=== PATIENT | female | born 1960 | race Caucasian/White ===

== ENCOUNTER 2018-08-24 07:15 | Day surgery (SDC) | payer OTHER, SELFPAY ==
[2017-10-02 08:07] VITALS: BMI 28.9
[2018-08-24] VITALS (7 sets, daily range): BP systolic 102–140; BP diastolic 63–91; PULSE 70–91; RESP 16–18; TEMP 36.3–36.8; O2SAT 94–100; BMI 28.4
--- NOTE | 2018-08-24 08:30 | COLBX_PTH ---
PATIENT: GRETA CRESPO LOC: EN U#:[id number] AGE/SX: 58/F ROOM: RE08/24/[address]: Dr. Miguel Corral MD : 1960 BED: DIS: 08/24/2018 SPEC #: [id number] RECD: 08/24/18 11:09 STATUS: ERNESTINA [place]NE #: [id number] ABIGAIL: 08/24/18 08:[address]: Miguel Corral DEPT: SURGICAL PATHOLOGY RECD BY: Kiran Miner ENTERED: 08/24/18 12:23 SP TYPE: COLON BX OTHR DR: Dr. Joao Herron MD Tissues: Sigmoid colon biopsy Procedures: Surgery Specimen Level IV HEADER OPERATION: Colonoscopy - open access (MAC) PRE-OP DIAGNOSIS: History colon polyps TISSUE SUBMITTED: Sigmoid polyp biopsy MICROSCOPIC DIAGNOSIS Sigmoid polyp, biopsy: Fragments of colonic mucosa with focal hyperplastic changes. SJ:yocasta 08/25/18 MICROSCOPIC DESCRIPTION Slides are reviewed. GROSS DESCRIPTION Received in fixative is one container labeled with the patient's name and designated sigmoid polyp biopsy. The specimen consists of two irregular fragments of light jameson soft tissue that in aggregate measure 0.3 x 0.3 x 0.1 cm. The specimen is totally submitted in one cassette. / SJ:rg 08/24/18 TC:5 CPT: 12977
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
--- NOTE | 2018-08-24 09:07 | OP.ENDO_ITS ---
08/24/2018 Joao Herron MD [address] [place] [address] Re : Colonoscopy procedure for Yesika Serna Dear Dr. Herron This procedure was performed on Friday, August 24, 2018. My impressions and recommendations are as follows: Impressions : - The entire examined colon is normal. - One 3 mm polyp in the sigmoid colon, removed with a jumbo cold forceps. Resected and retrieved. - Diverticulosis in the sigmoid colon. No specimens collected. - Non-bleeding internal hemorrhoids. - The examination was otherwise normal. Recommendations : - Discharge patient to home. - Resume previous diet. - Continue present medications. - Await pathology results. - Repeat colonoscopy in 3 years for surveillance. - Return to my office in 1 week. My findings are described in the full procedure note, which is enclosed. If I can be of further assistance, please feel free to contact me at Doctor phone number(s): , Fax: [phone], Work: . Sincerely, MD Miguel Prakash MD 08/24/2018 9:07:16 AM This report has been signed electronically.
== END 2018-08-24 10:00 | disposition home or self-care (01) ==
LOC: EN 07:16 → AC 08:43
PROVIDERS: Family Provider Family Medicine; PCP Family Medicine; Referring Provider Surgery; Visit Provider Surgery
PROC: 0DJD8ZZ Inspection of Lower Intestinal Tract, Via Natural or Artificial Opening Endoscopic (ICD-10-PCS; CPT 45378; principal; 2018-08-24 08:25)
DX: Z12.11 Encounter for screening for malignant neoplasm of colon (principal); K63.5 Polyp of colon; K57.30 Diverticulosis of large intestine without perforation or abscess without bleeding; L23.7 Allergic contact dermatitis due to plants, except food; E07.9 Disorder of thyroid, unspecified; F32.9 Major depressive disorder, single episode, unspecified; F41.9 Anxiety disorder, unspecified; F17.200 Nicotine dependence, unspecified, uncomplicated; Z79.899 Other long term (current) drug therapy; Z78.0 Asymptomatic menopausal state; Z86.010 Personal history of colon polyps; Z85.828 Personal history of other malignant neoplasm of skin
CPT/HCPCS: 45380; 88305; J7120; J1610

== ENCOUNTER → 2018-09-09 06:38 | Outpatient (CLI) | payer OTHER, SELFPAY ==
[2017-10-02 08:07] VITALS: BMI 28.9
[2018-08-24 07:39] VITALS: BMI 28.4
--- NOTE | 2018-09-09 06:42 | RAD_ITS ---
HISTORY: RT hip PAIN W/ DDD EXAMINATION/TECHNIQUE: XR AP pelvis and right hip 3 views COMPARISON: None FINDINGS: Degenerative arthritis with moderate narrowing of the right femoral acetabular joint. The left hip joint and SI joints appear preserved. Tubal ligation clips within the pelvis. No suspicious bony lesion. RAD/HIP, UNI W/ Pelvis 2-3 Views IMPRESSION: 1. Moderate osteoarthritis, right femoral acetabular joint. 2. Otherwise negative exam. Normal left hip. No acute disease. at 0813 Reported and signed by: Arcenio Peguero MD Electronically Signed: Arcenio Peguero, at 8:12 EDT Tel , Service support ,
== END ==
PROVIDERS: Family Provider Family Medicine; PCP Family Medicine; Referring Provider Family Medicine; Visit Provider Family Medicine
DX: M25.551 Pain in right hip (principal)
CPT/HCPCS: 73502

== ENCOUNTER → 2018-10-09 10:39 | Outpatient (CLI) | payer OTHER, SELFPAY ==
[2018-08-24 07:39] VITALS: BMI 28.4
[2018-10-09 12:30] LABS: Absolute Lymphocyte Count 2.86 X10^3/uL (0.83-4.51); Absolute Neutrophil Count 9.7 X10^3/uL (2.0-7.7); Basophil# 0.21 X10^3/uL; Basophil% 1.5 % (0-1); Eosinophil# 0.33 X10^3/uL; Eosinophils% 2.3 % (0-5); Hematocrit 42.8 % (37-47); Hemoglobin 14.3 g/dL (12.0-15.0); Lymphocyte # 2.86 X10^3/ul (4.0); Lymphocyte % 20.2 % (19-41); Mean Corp Hgb Conc 33.4 g/dL (32-36); Mean Corpuscular Hgb 29.6 pg (27.0-32.0); Mean Corpuscular Volume 88.6 fL (81-99); Mean Platelet Vol. 10.5 fl (6.2-12.0); Monocyte# 0.96 X10^3/uL; Monocyte% 6.8 % (0-10); NRBC Flagged by Analyzer 0 % (0-5); Neutrophil # 9.71 X10^3/uL (2.7-7.7); Neutrophil % 68.7 % (47-70); Platelet Count 377 K/mm3 (150-450); RBC Distribution Width CV 13.9 % (11.6-14.6); Red Blood Count 4.83 M/mm3 (4.2-5.4); White Blood Count 14.1 K/mm3 (4.4-11.0)
[2018-10-09 12:58] LABS: Anion Gap 7 (5-15); BUN 14 mg/dL (7-18); BUN/Creat Ratio 24.1 RATIO (10-20); Chloride 104 mmol/L (98-107); Creatinine, Serum 0.58 mg/dL (0.55-1.02); EST Glomerular Filtration Rate 113 mL/min (>60); Est Glom Filt Rate - Afr Amer 137 mL/min (>60); Glucose 81 mg/dL (74-106); Potassium 3.8 mmol/L (3.5-5.1); Sodium Level 138 mmol/L (136-145)
== END ==
PROVIDERS: Family Provider Family Medicine; PCP Family Medicine; Referring Provider Family Medicine; Visit Provider Family Medicine
DX: Z01.818 Encounter for other preprocedural examination (principal)
CPT/HCPCS: 36415; 80048; 85025

== ENCOUNTER 2018-11-04 06:47 | Inpatient (IN) | payer OTHER, SELFPAY ==
[2018-08-24 07:39] VITALS: BMI 28.4
[2018-10-19 15:08] VITALS: BP 138/75; PULSE 73; RESP 17; TEMP 37.5; O2SAT 98; BMI 29.7
[2018-10-19 16:41] LABS: Thyroid Stim Hormone (TSH) 3.32 uIU/mL (0.358-3.74)
--- NOTE | 2018-10-20 15:33 | HP.PCM_ITS ---
History and Physical Patient Name: Yesika Bey: 1960 From: VANDANA MONROY PA-C DATE OF SURGERY: 11/04/2018 SCHEDULED PROCEDURE: right total hip arthroplasty HISTORY OF PRESENT ILLNESS: Preoperative history and physical exam was performed on October 19, 2018. This is a 58-year-old female who has been having ongoing pain in the right hip for a pproximately 8 months. Pain can reach as high as an 8/10 with activity. Patient states her pain is sharp and sore. She has increased pain going up and down stairs, sitting for extended periods of time, walking. She has difficult time getting in and out of a car. She does have start up pain. Pain is located in the right groin. Patient states the pain does occasionally wake her at night. Patient states she has had difficult time with activities of daily living including dressing, housework, shopping, and leisure activities such as horseback riding and working. Patient has fallen and tripped/stumbled due to the hip pain. She feels unsafe walking and going up and down stairs. Patient has tried rest and heat with minimal relief. She has been through patient care secretary with minimal relief. Patient has tried ice and elevation with no relief as well as home exercises with no relief in symptoms. She has been on oral medications consisting of naproxen and Advil with no relief. She has used hydrocodone with minimal relief. Patient denies previous surgeries on the right hip. Patient denies any recent chest pain, shortness of breath, fevers chills, recent infections. After failing conservative measures and discussing all treatment options with Dr. Devon Guerrier the patient does wish to proceed with a right total hip arthroplasty. We have obtain surgical clearance from patient's primary care physician Dr. Herron. REVIEW OF SYSTEMS: ROS: Const: Reports weight change, but denies anorexia, change in appetite, fever, difficulty sleeping. CV: Denies chest pain, heart murmur, irregular heartbeat and peripheral vascular disease. Resp: Denies asthma, cough, pneumonia, sleep apnea, shortness of breath, tuberculosis and wheezing. GI: Denies constipation, diarrhea, heartburn, nausea, rectal itching, bloody stools and vomiting. : Denies incontinence. Musculo: Reports pain and trouble walking, but denies leg swelling and weakness. Skin: Reports tattoo, but denies Raynaud's and history of shingles. Neuro: Denies ambulatory dysfunction, dizziness, numbness/tingling and tremor. Psych: Reports depression and stress, but denies anxiety, insomnia and mental illness. Tam/Lymph: Denies anemia, bleeding/bruising tendency and past transfusion. Reviewed, no changes. PAST MEDICAL HISTORY: Advance Care Plan: No Advance Directives Effective Date: 10/01/2018 PMH: Medical Problems: Depression, Hypercholesterolemia, Thyroid Disease Accidents: cracked ribs - 1991 horse accident Surgical Hx: Tonsillectomy - 1965 [facility] Tubal Ligation - 2004 [facility] Gallbladder, LT Shoulder Arthroscopy Anesthesia Complications: None Assistive Devices: Contacts, Dentures - PARTICAL Reviewed and updated. 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 Personal Habits: Cigarette Use: Light tobacco smoker (10 or fewer cigarettes/day).Smokeless Tobacco: Never Used Smokeless Tobacco.E-Cigarette Use: Never used.Alcohol: Weekly use.Drug Use: Denies Use.Enjoy Exercising: Exercises 1-3 x/month. Reviewed, no changes. VITALS: Ht: 65 Wt: 185lb Wt k.916 BMI: 30.8 BP: 136/86 Pulse: 66 Resp: 16 T: 97.9 T: 36.6C ALLERGIES: Morphine MEDICATIONS: Trazodone HCL 50 mg 1 po qhs, Levothroid 50 mcg 1 tab PO daily, Acyclovir 400 mg 1po qday, Duloxetine HCL 60 mg 1po qday, Crestor 1 tab PO daily PRE-OP EXAM: General appearance:NORMAL Other: Eyes: Conjunctivae and lids: NORMAL Pupils: ERR Ears, Nose, Mouth, and Throat: NORMAL Other: Inspection of lips, teeth and gums: NORMAL Other: Neck: Examination of neck: no masses noted. Respiratory: Assessment of respiratory effort: NORMAL Other: Auscultation of lungs: clear to auscultation no wheezes, rhonchi or rales. Cardiovascular: Auscultation of heart: regular rate and rhythm, no murmurs, gallops or rubs. Gastrointestinal: Exam of abdomen: soft, nontender, nondistended bowel sounds present. PHYSICAL EXAMINATION: Patient does walk with an antalgic gait. Patient has tenderness to palpation of the right lateral hip at the greater trochanter. Range of motion right hip full extension to 80 flexion with increased pain. Internal rotation to neutral and external rotation 20. 4/5 hip flexion secondary to pain. Sensation intact to light touch. Neurovascularly intact. IMAGING STUDIES: X-rays were obtained at [facility] on October 19, 2018 including 2 views AP pelvis and AP right hip reveal severe osteoarthritis with joint space narrowing and osteophyte formation. There does appear to be shallow acetabulum consistent with dysplastic appearance of the hip and oblong shape to the femoral head. IMPRESSION: 1. Severe right hip osteoarthritis 2. Depression 3. Hypercholesterolemia 4. Thyroid disease PLAN: Dr. Devon Guerrier did discuss and review with the patient all treatment options including surgical versus nonsurgical options. Patient does wish to proceed with the above-stated procedure. Potential risks, benefits, and complications of the procedure were discussed in detail including but not limited to , infection, nerve and blood vessel damage, persistent pain, numbness, tingling, paresthesias, blood clot, pulmonary embolism, and requirement for possible further surgery. The patient expressed full understanding and has no further questions for the doctor. Patient does agree to proceed with the above-stated procedure and has signed the surgery consent form. This dictation was created using voice recognition software. Phonetic and/or grammatical errors may exist. ___ I have re-examined the patient. There are no clinical changes since date of exam. ___ See progress notes for changes. ___ Dictated on admission Date: Time: Signature:
[2018-11-04] VITALS (11 sets, daily range): BP systolic 99–142; BP diastolic 58–92; PULSE 56–76; RESP 16–18; TEMP 36.2–37.1; O2SAT 97–100; BMI 29.7
--- NOTE | 2018-11-04 06:58 | RAD_ITS ---
STUDY: X-RAY - PELVIS AND RIGHT HIP REASON FOR EXAM: Postop right hip arthroplasty. TECHNIQUE: 2 views of the pelvis and hip. COMPARISON: Radiographs 09/09/2018 and intraoperative images 11/04/2018. FINDINGS: There are surgical clips in the pelvis. There is postoperative gas in the soft tissues. Normal visualized bilateral iliac wings, sacroiliac joints and visualized sacrum. Normal bilateral superior and inferior pubic rami. Normal pubic symphysis. Normal bilateral ischial tuberosities. There is a right hip arthroplasty without evidence of complication. RAD/Hip Min 2 Views (Portable) IMPRESSION: Uncomplicated right hip arthroplasty. Electronically Signed: Garland Degroot MD at 14:21 EDT Tel , Service support ,
[2018-11-04 07:21] LABS: Bedside Glucose 85 mg/dL (70-110)
[2018-11-04] MEDS: Magnesium Sulfate 4gm/100mL 4 GM/100 ML IV.SOLN. IV (07:36)
[2018-11-04] MEDS: Gabapentin 600 MG Tablet PO (07:41)
[2018-11-04] MEDS: Celecoxib 200 MG Capsule 400 MG PO (07:41)
[2018-11-04] MEDS: Acetaminophen 500 MG Tablet 1000 MG PO ×3 (07:43→21:02)
[2018-11-04] MEDS: Scopolamine 1mg/72hr Patch 1 PATCH TRANSDERM. (07:44)
[2018-11-04] MEDS: Cefazolin 2 GM in 0.9% Normal Saline 100 ML IV (08:44)
--- NOTE | 2018-11-04 09:39 | RAD_ITS ---
STUDY: Intraoperative fluoroscopy of the right hip REASON FOR EXAM: Female, 58 years old. Right hip replacement TECHNIQUE: Single intraoperative fluoroscopy view of the pelvis and hip. COMPARISON: 09/09/2018 FINDINGS: This trial prosthesis in place for intraoperative assessment of the right hip prosthesis, which demonstrates anatomical positioning. RAD/Hip 1 view with Pelvis IMPRESSION: Anatomical intraoperative positioning of the right hip prosthesis. Electronically Signed: Francesco Singh MD at 14:08 EDT Tel [phone], Service support ,
--- NOTE | 2018-11-04 10:25 | OP.PCM_ITS ---
Report of Operation Date of Procedure: 11/04/18 Pre-Operative Diagnosis: Right hip dysplasia with secondary osteoarthritis Post-Operative Diagnosis: Right hip dysplasia with secondary osteoarthritis Surgery/Procedure Performed:: Right direct anterior minimally invasive total hip replacement Description of Surgical Findings:: Stable hip. building economist: Kahlil Munguia Type of Anesthesia:: Spinal Anesthesiologist: Mitchel Carranza Special Medications: 2 g Ancef, 1 g TXA at incision, 1 g TXA closure, 10 mg Decadron, joint cocktail (5 mg Duramorph, 30 mL of 0.5% Ropivicaine, 1000 units of epinephrine, 30 mg of Toradol) Specimen's removed: Bony cuts Estimated Blood Loss (mL): 250 Fluids Replaced: 900 mL crystalloid Description of Procedure: Components used: 1. Accolade 2 Kameron femoral stem size 2 127? 2. Kameron trident 2 acetabular shell size 52 mm 3. Kameron MDM liner E, with corresponding outer polyethylene head 42E 4. Cordova Biolox delta 26 mm, -4 mm femoral head Brief history operative indications: 58 yo f who failed conservative measures for their hip osteoarthritis secondary to dysplasia. X-rays were consistent with osteoarthritis including joint space narrowing, osteophyte formation and subchondral cysts. Total hip replacement was discussed with the patient with risks and benefits including but not limited to blood loss, DVTs, PEs, neurovascular damage, dislocation, general risks of anesthesia including loss of life. Patient demonstrated an understanding medical clearance is obtained the patient was consented for surgery. Procedure: On the date of procedure the patient's r hip was marked in the preoperative area . Patient was then taken back to the operating room where anesthesia assumed control of the C-spine and airway and administered anesthetic. Patient was transferred to the operating table and placed in the supine position. The hips were placed at the break of the bed and a sacral bump was placed. The r lower extremity was then prepped out in a sterile fashion using chlorhexidine while the surgeon scrubbed. The PA was vital in the positioning of the patient. Upon reentering the room the r lower extremity was draped in the standard orthopedic fashion and the incision was marked. A timeout was called and everyone agreed upon the side, the site, the procedure be performed, antibody given, and patient's identity. At this time incision was made through skin, subcutaneous tissue, and fat down to fascia. The fascia was then incised and the TFL was retracted laterally. A retractor was placed on the lateral border of the femoral neck. Attention was directed to the inferior portion of the approach and all crossing vessels were identified and appropriately coagulated. A retractor was then placed on the medial portion of the femoral neck. The anterior capsule was then cleared of all soft tissue and then H shaped capsulotomy was made. The retractors were then placed inside the capsule. The femoral neck was identified and a cleanup cut was made. At this time a power corkscrew was used to remove the femoral head. Attention was then turned toward the acetabulum where the soft tissues were appropriately retracted and the acetabulum was sequentially reamed to 52 mm. A 52 mm cup was then selected and impacted into place. Acetabular liner was impacted into place and locking mechanism was verified. The position of the acetabular cup was then verified under live fluoroscopy. Attention was then turned to the femur. Soft tissue releases on the medial and lateral femoral neck were appropriately done, the leg was externally rotated and lateralized. A Ritter retractor was placed medially and proximally to the greater trochanter this allowed appropriate visualization and exposure of the femoral canal. Rongeour was then used to remove excess lateral bone. A canal finder and entry broach were used to open the proximal canal. Once we verified we were down the femoral canal we subsequently broached up to a size 2 femur. The appropriate neck was placed in the previously selected head was trialed with a -5 mm neck. Traction was pulled and the hip was reduced with internal rotation. Once it was appropriately reduced and stability was checked. There was minimal shuck, equal leg lengths and what was felt to be appropriate stability with hyperextension and external rotation as well as with 90? flexion and internal rotation. Fluoroscopy was then also used to verify the position of the components and leg lengths using the contralateral side for comparison. The trial components were then dislocated the proximal femur was again exposed and the components were removed from the wound. The final components were verified and opened. The wound was copiously irrigated out with normal saline. The acetabulum was checked for any residual debris. The final components were placed and impacted. Traction and internal rotation were again used to reduce the hip. After adequate reduction the hip stability checks were not satisfactory. At this time we elected to dislocate the hip and go to an MDM liner. The polyethylene liner was removed. The previous ceramic head was removed. The wound was copiously irrigated out. The MDM liner which is appropriate was placed. We then trialed a -4 for the MDM which showed appropriate stability and adequate leg length equality. Trial was removed after dislocating the hip. Trunnion was cleaned, components were assembled on the back table and impacted into place. The hip was again reduced. This time we had adequate stability with the hip and external rotation and extension. The final components were once again checked with live fluoroscopy and were found to be satisfactory. The wound was then copiously irrigated with normal saline once more, and hemostasis was obtained. Closure was then done using #1 Vicryl runner to close the fascia. A 2-0 vicryl interuppted sutures were used to close the subcutaneous skin. A 3-0 Monocryl and Steri-Strips were used for final skin closure. A Silverlon dressing was placed. Patient was awakened by anesthesia and transferred to the [facility]. Patient was then transferred to the PACU for recovery. Postoperative plan: Patient will get 24 hours postop antibiotics. Patient will get in-house physical therapy and will be weight-bear as tolerated. Patient will follow up in office in 2 weeks for a wound check and x-rays. Grafts/Implants Used: Cordova - Complications No intraoperative complications - Admit VTE Documentation VTE Present on Admission: No VTE Mechan Device Prophylaxis: SCD's, Thigh High LIOR Hose VTE Pharm Prophylaxis ordered?: Yes
[2018-11-04] MEDS: Lactated Ringers 1,000 ML 125 ML IV (11:24)
[2018-11-04] MEDS: oxyCODONE 5 MG Tablet PO ×3 (12:33→21:04)
[2018-11-04] MEDS: Acyclovir 200 MG Capsule 400 MG PO (14:20)
[2018-11-04] MEDS: DULoxetine Hcl 60 MG Capsule PO (14:20)
[2018-11-04] MEDS: Famotidine 20 MG Tablet PO (14:20)
[2018-11-04] MEDS: Cefazolin 1 GM/50 ML BAG IV (16:07)
[2018-11-04] MEDS: Aspirin 81 MG TAB.CHEW PO (16:08)
[2018-11-04] MEDS: Ensure Surgery 237 ML LIQUID PO (16:19)
[2018-11-04] MEDS: Atorvastatin Calcium 10 MG Tablet PO (21:03)
[2018-11-04] MEDS: traZODone 50 MG Tablet PO (21:04)
[2018-11-04] MEDS: Senna/Docusate Sodium 1 Tablet 2 TABLET PO (21:04)
--- NOTE | 2018-11-04 21:16 | NURSING ---
pt requesting scope patch be removed. c/o dry mouth and does not feel she needs it. patch removed and disposed of.
[2018-11-05] MEDS: Cefazolin 1 GM/50 ML BAG IV (00:29)
[2018-11-05] MEDS: 0.9% NaCl Peripheral Flush Adult/Peds IV (00:41)
[2018-11-05] MEDS: Ketorolac 15 MG/ML Vial IV (00:41)
[2018-11-05 00:47] VITALS: BP 102/61; PULSE 64; RESP 18; TEMP 36.5; O2SAT 95
[2018-11-05] MEDS: oxyCODONE 5 MG Tablet PO ×2 (03:59→07:37)
[2018-11-05 04:05] VITALS: BP 115/63; PULSE 65; RESP 16; TEMP 36.6; O2SAT 96
[2018-11-05 05:50] LABS: Hemoglobin 11.9 g/dL (12.0-15.0); Mean Corp Hgb Conc 33.1 g/dL (32-36); Mean Corpuscular Volume 90.7 fL (81-99); Mean Platelet Vol. 10.1 fl (6.2-12.0); Platelet Count 296 K/mm3 (150-450); RBC Distribution Width CV 13.6 % (11.6-14.6); Red Blood Count 3.97 M/mm3 (4.2-5.4); White Blood Count 13.9 K/mm3 (4.4-11.0)
[2018-11-05 06:10] LABS: Anion Gap 7 (5-15); BUN 12 mg/dL (7-18); BUN/Creat Ratio 22.5 RATIO (10-20); Calcium,Total 8.2 mg/dL (8.5-10.1); Chloride 107 mmol/L (98-107); Creatinine, Serum 0.53 mg/dL (0.55-1.02); EST Glomerular Filtration Rate 125 mL/min (>60); Est Glom Filt Rate - Afr Amer 151 mL/min (>60); Estimated Creatinine Clearance 106.99 ml/min; Glucose 96 mg/dL (74-106); Potassium 4.3 mmol/L (3.5-5.1); Sodium Level 140 mmol/L (136-145)
[2018-11-05] MEDS: Meloxicam 7.5 MG Tablet PO (06:43)
[2018-11-05] MEDS: Levothyroxine 50 MCG Tablet PO (06:43)
[2018-11-05] MEDS: Acetaminophen 500 MG Tablet 1000 MG PO (06:43)
[2018-11-05] MEDS: Ensure Surgery 237 ML LIQUID PO (07:42)
[2018-11-05] MEDS: Senna/Docusate Sodium 1 Tablet 2 TABLET PO (07:42)
[2018-11-05] MEDS: Aspirin 81 MG TAB.CHEW PO (07:42)
[2018-11-05] MEDS: DULoxetine Hcl 60 MG Capsule PO (07:42)
[2018-11-05] MEDS: Famotidine 20 MG Tablet PO (07:43)
[2018-11-05] MEDS: Acyclovir 200 MG Capsule 400 MG PO (07:43)
[2018-11-05 07:47] VITALS: BP 103/64; PULSE 72; RESP 18; TEMP 36.8; O2SAT 98
--- NOTE | 2018-11-05 08:26 | PN.ORTHO_ITS ---
Subjective: The patient was sitting in bedside chair upon examination. Patient denies any chest pain, shortness of breath, dizziness, lightheadedness, nausea or vomiting, or calf pain. Pain is controlled on medications. No adverse overnight events. Patient is overall doing very well and is wanting to go home this morning. She does complain of soreness in the right anterior thigh. Objective: Vital signs stable and afebrile. Patient is able to plantarflex and dorsiflex actively. Sensation is intact to light touch to saphenous, sural, superficial and deep peroneal, and tibial distribution. Dressing is clean dry and intact. Swelling to right thigh, thigh is soft and supple Negative Homans bilaterally, negative signs and symptoms of DVT. - Physical Exam General: Alert, Oriented x3, Cooperative, No apparent distress Vital Signs Temp Pulse Resp BP Pulse Ox 98.3 F 72 18 103/64 98 11/05/18 07:47 11/05/18 07:47 11/05/18 07:47 11/05/18 07:47 11/05/18 07:47 Oxygen Flow Rate (L/min) 6 Oxygen Delivery Method Room Air Weight: 83.4 kg Body Mass Index (BMI) 29.7 Intake and Output for Last 24 Hours 11/03/18 11/04/18 11/05/18 23:59 23:59 23:59 Intake Total 2856.67 / 3469.17 1142.5 / 1142.5 Output Total 801 / 801 Balance 2856.67 / 2968.17 341.5 / 341.5 Laboratory Tests Past 24 Hrs 11/05/18 11/05/18 04:55 04:55 WBC 13.9 H RBC 3.97 L Hgb 11.9 L Hct 36.0 L MCV 90.7 MCH 30.0 MCHC 33.1 RDW Std Deviation 46.0 H RDW Coeff of Ray 13.6 Plt Count 296 MPV 10.1 Sodium 140 Potassium 4.3 Chloride 107 Carbon Dioxide 26.0 Anion Gap 7 BUN 12 Creatinine 0.53 L Estim Creat Clear Calc 106.99 Est GFR (MDRD) Af Amer 151 Est GFR (MDRD) Non-Af 125 BUN/Creatinine Ratio 22.5 H Glucose 96 Calcium 8.2 L Medical Necessity - Tobacco Use Smoking Status: Current every day smoker Tobacco Use: Cigarettes Assessment/Plan All Active Problems (Last Reviewed 08/31/18 @ 14:47 by Lianne Conley) Contact dermatitis due to poison analilia (Acute) 1. S/P right direct anterior total hip arthroplasty POD #1 2. Continue Pain Medications: Tylenol and OxyIR 3. DVT Prophylaxis: Aspirin 81 mg twice daily with food for 4 weeks postoperatively 4. PT/OT: Weightbearing as tolerated 5. H & H: 11.9/36.0, asymptomatic 6. Reactive leukocytosis: Currently 13.9, afebrile. Patient did receive Decadron intraoperatively 7. Encouraged Incentive Spirometry 8. Disposition: Orthopedically stable, plan will be for discharge home after physical therapy this morning. Prescriptions will be E scribed to [facility]. Patient will follow-up per postop instructions.
--- NOTE | 2018-11-05 08:33 | PCM.DC.THR ---
Discharge Diet: No Restrictions Discharge Activity: May Not Drive - while taking narcotic pain medications. May shower in (days): 1 - Turn dressing away from water Ice area for (Minutes): 20 - Every 1-2 hours while awake Weight Bearing Status: Weight bearing as tolerated Elevate: Operative Extremity Additional Activity Instructions:: Wear elastic stockings for 2 weeks. DO NOT use alcohol with narcotic pain medication. DO NOT make important decisions while taking narcotic medication. If you have problems with taking your medication (rash, itching, nausea, etc.) call the office at once. Call your doctor if your incision/area has: Increased Pain/ Swelling, Increased Redness, Foul Smelling Discharge Call your doctor if you observe: Fever of 101 or Higher Remove Dressing in (days):: 4 - Okay to remove on November 09, 2018 Additional Instructions: Follow [facility] postop instructions Do not take aspirin 81 mg and meloxicam at the same time, please stagger medications Allergies/Adverse Reactions: Allergies insect venom Allergy (Verified 11/04/18 07:21) Swelling morphine Adverse Reaction (Verified 11/04/18 07:21) Other Medications to take at Discharge Acyclovir [Zovirax] 400 mg PO DAILY 07/10/16 Levothyroxine [Synthroid] 50 mcg PO DAILY 07/10/16 Duloxetine Hcl [Cymbalta] 60 mg PO DAILY 08/21/18 Rosuvastatin Calcium [Crestor] 5 mg PO DAILY 10/19/18 traZODone [Desyrel] 50 mg PO QHS 10/19/18 Acetaminophen [Tylenol] 1,000 mg PO Q8 #100 tab 11/05/18 Aspirin [Aspirin, Baby] 81 mg PO BIDCM 30 Days tab 11/05/18 Famotidine [Pepcid] 20 mg PO DAILY #30 tab 11/05/18 Meloxicam [Mobic] 7.5 mg PO BID #60 tab 11/05/18 Oxycodone [Oxyir] 5 - 10 mg PO Q4H PRN PRN 4 Days #45 tablet 11/05/18 Senna/Docusate Sodium [Senokot-S] 2 tab PO BID tab 11/05/18 The following prescriptions were given: Meloxicam [Mobic] 7.5 mg PO BID #60 tab Transmission Status: Pending to [facility] Oxycodone [Oxyir] 5 - 10 mg PO Q4H PRN PRN 4 Days #45 tablet PRN Reason: Mod-Severe Pain (-12/24) Transmission Status: Sent to [facility] Famotidine [Pepcid] 20 mg PO DAILY #30 tab Transmission Status: Pending to [facility] Acetaminophen [Tylenol] 1,000 mg PO Q8 #100 tab Transmission Status: Pending to [facility] Primary Care Physician: Joao Herron MD [Primary Care Provider] - Test Results: Test results from this visit will be discussed in further detail at your follow-up appointment, if applicable. Please Follow Up With: [facility] When: 11/09/18 @ 10:00 Please Follow Up With: Jose Gong PA-C When: 11/18/18 @ 8:30 am
== END 2018-11-05 09:47 | disposition home or self-care (01) | DRG 470 ==
LOC: ACINP 06:50 → MS3 06:54
PROVIDERS: Anesthesiology; Admitting Provider Specialist; Family Provider Family Medicine; PCP Family Medicine; Referring Provider Specialist; Visit Provider Specialist
PROC: 0SR90JA Replacement of Right Hip Joint with Synthetic Substitute, Uncemented, Open Approach (ICD-10-PCS; CPT 27284; principal; 2018-11-04 08:35)
DX: M16.7 Other unilateral secondary osteoarthritis of hip (principal); Q65.89 Other specified congenital deformities of hip; E07.9 Disorder of thyroid, unspecified; E78.00 Pure hypercholesterolemia, unspecified; F32.9 Major depressive disorder, single episode, unspecified
CPT/HCPCS: 36415; 73501; 73502; 76000; 80048; 82962; 84443; 85027; 87081; 97110; 97162; 97166; 97530; 99406; C1776; J7120; A4216; J2405

== ENCOUNTER 2018-12-18 14:00 | Outpatient (RCR) | payer OTHER, SELFPAY ==
[2018-08-24 07:39] VITALS: BMI 28.4
[2018-11-04 12:09] VITALS: BMI 29.7
--- NOTE | 2018-11-13 08:52 | HP.PTEVAL ---
Patient's Visit Information GRETA CRESPO is a 58 year old F referred to Physical Therapy by Devon Guerrier MD with a diagnosis of R KYLIE. Date of Evaluation: 11/09/18 Physical Therapist: Kevin Gardner DPT - Visit Plan Frequency: 2-3x /Week Duration: 4-6 Weeks Plan: Start with ROM/strengthening, modalities as needed. Progress to functional strengthening as tolerated. - Subjective Findings: Pt. is here today for her initial evaluation with diagnosis of R KYLIE. Pt. is 5 days out of surgery. Pt. is a [employer] employee in . Pt. has to walk a lot for her job. Pt. reports having initial pain, but is doign better now. Pt. denies N/T, no shortness of breath, no changes in vision, no fever and no chills. SHe has difficulty getting up from chairs, out of bed and has increased symptoms with WBing on her RLE. Pt. has been icing and doing some exercises at home. She is hopeful to get back to all recreational and work activities without lmitations. - Pain R hip Pain Intensity (Out of 10): 2 Pain Intensity Range: 1, 4 - Objective POSTURE: Pt. has normal posture with slight wt. shift to L side. Pt. uses FWW for balance, but is able to stand without AD. PALPATION: pt. has slight pain at lateral hip and along anterior thigh. Pt. has aquacell covering incision. I called physician to determine when able to remove. NEURO: normal throuhgout. ROM: R Hip- flexon 88deg, abd 45deg, ext- no measured, rotation not measeured. MMT: RLE- ankle- 5/5 throughout; knee- ext 4+/5, flexion 4+/5; hip- flexion 3+/5, abd 3+/5, ext- no tested, rotation not tested. GAIT: Pt. ambulates with FWW without lOB. Pt. does have decreased step length on LLE and decreased wt. shift to R side with gait. STAIRS: Pt. has step to pattern with heavy use of BHR. - Goals Goal 1:: Pt. to be I with HEP. Goal Time Frame: 4-6 Weeks Goal 2:: Pt. to have increased R hip ROM symmetrical to L. Goal Time Frame: 4-6 Weeks Goal 3:: Pt. to have increased RLE strength by 1/2 grade Goal Time Frame: 4-6 Weeks Goal 4:: Pt. sleep throughout the night without increase in symptoms. Goal Time Frame: 4-6 Weeks Goal 5:: Pt. ambulate without AD with normalized gait pattern for unlimited distances. Goal Time Frame: 4-6 Weeks Goal 6:: Pt. to negotiate 1 flight of steps with 1 HR with recrprocal pattern. Goal Time Frame: 4-6 Weeks - Rehabilitation Potential Physical Therapy Diagnosis: Pt. has signs and symptoms consistent with R KYLIE. Pt. has subsequent hypomobility, weakness, difficulty with gait and increasd pain. Pt. would benefit from PT to address above limitations progressing to work and recreational activities. Rehabilitation Potential: Excellent - Anticipated Interventions Patient/Client Instruction: Educate patient on: Condition, Plan of Care, Risk Factors, Benefits of Fitness Program For the Purpose of:: To improve decision making, To facilitate caregiver knowledge, To improve self management, To prevent re-injury, To improve ability to perform tasks related to life management, To improve tolerance to ADL's Therapeutic Exercise to Include: Strength training, Power training, Endurance training, Balance training, Body mechanics, Postural training, Flexibilty training, Gait and locomotor training, Passive ROM, Active ROM, Dynamic Lumbar Stabilization For the Purpose of:: To decrease pain, To decrease swelling/inflammation, To increase ROM, To improve nutrient delivery to tissue, To increase oxygenation perfusion, To improve muscle performance and motor function, To improve ability to perform ADL's, To improve health of tissue, To decrease soft tissue restriction, To increase flexibility/ROM, To improve safety with gait IF ES: Yes Cryotherapy (ice pack, ice massage): Yes For the Purpose of:: To decrease pain, To decrease swelling/inflammation, To increase ROM, To improve nutrient delivery to tissue Thank you for the opportunity to evaluate your patient. For Medicare and Medicare HMO plans, please review the plan of care and approve it. It will need to be FAXED BACK to us at [phone] for Medicare purposes. For Medicare only, by signing this I certify the plan of care. Please let me know if there are questions or concerns regarding this plan of care. Physician Signature: Date:
== END 2018-12-18 17:00 | disposition home or self-care (01) ==
LOC: PT 14:00
PROVIDERS: Family Provider Family Medicine; PCP Family Medicine; Referring Provider Specialist; Visit Provider Specialist
DX: M16.31 Unilateral osteoarthritis resulting from hip dysplasia, right hip (principal)
CPT/HCPCS: 97110; 97161; 97530

== ENCOUNTER → 2020-01-03 14:33 | Outpatient (CLI) | payer OTHER, SELFPAY ==
[2019-05-09 08:53] VITALS: BMI 29.7
--- NOTE | 2020-01-03 14:37 | BI_ITS ---
MAMMOGRAPHY - BILATERAL SCREENING REASON FOR EXAM: Female, 59 years old. Routine annual screening examination. PERTINENT HISTORY: Non-contributory. TECHNIQUE: Digital bilateral breast kaylen (3D mammographic acquisition) in the CC and MLO projections. 2-D mediolateral oblique (MLO) and craniocaudad (CC) views of both breasts were obtained. CAD: Full Field Digital Mammography with Computer Added Detection was performed. COMPARISON: Comparison is made with prior examination dated 11/17/2012 and 11/08/2010. FINDINGS: Breast Composition: The breasts are heterogeneously dense, which may obscure small masses. There are no dominant masses or suspicious calcifications. Stable benign-appearing bilateral axillary lymph nodes. No other significant abnormalities are identified. There has been no significant change since the prior study. BI/SCREEN MAMM (CAD) W/KAYLEN BILAT IMPRESSION: Stable bilateral screening mammogram. Yearly follow-up mammogram recommended. (A) ASSESSMENT CATEGORY: BIRADS Category 2: Benign. A letter regarding these results will be sent to the patient by the facility within 30 days. Approximately 10% of breast cancers are not detected by mammography. A normal mammogram should not delay biopsy of a clinically suspicious abnormality. [id number] Electronically Signed: Giorgi Iraheta, at 15:14 EDT , Service support ,
== END ==
PROVIDERS: PCP Family Medicine; Referring Provider Family Medicine; Visit Provider Family Medicine
DX: Z12.31 Encounter for screening mammogram for malignant neoplasm of breast (principal)
CPT/HCPCS: 77063; 77067

== ENCOUNTER → 2020-12-13 07:37 | Outpatient (CLI) | payer OTHER, SELFPAY ==
[2020-12-13 09:08] LABS: Thyroid Stim Hormone (TSH) 1.98 uIU/mL (0.358-3.74)
== END ==
PROVIDERS: PCP Family Medicine; Referring Provider Registered Nurse; Visit Provider Registered Nurse
DX: E03.9 Hypothyroidism, unspecified (principal)
CPT/HCPCS: 36415; 84443

== ENCOUNTER 2021-03-28 12:52 | Outpatient (CLI) | payer OTHER, SELFPAY ==
[2021-03-28 13:08] VITALS: BP 143/82; PULSE 81; RESP 16; TEMP 36.6; O2SAT 98; BMI 29.8
[2021-03-28] MEDS: 0.9% Saline Lock 10 ML Syringe IV (13:13)
[2021-03-28 14:04] VITALS: BP 130/81; PULSE 71; RESP 16; TEMP 36.9; O2SAT 98
[2021-03-28 14:54] VITALS: BP 153/73; PULSE 74; RESP 16; TEMP 36.8; O2SAT 98
== END 2021-03-28 23:59 | disposition home or self-care (01) ==
LOC: MS3OUT 12:52 → MS3 12:53
PROVIDERS: PCP Family Medicine; Referring Provider Nurse Practitioner Adult Health; Visit Provider Nurse Practitioner Adult Health
DX: U07.1 COVID-19 (principal)
CPT/HCPCS: J7050; M0245; Q0245; A4216

== ENCOUNTER 2021-07-14 06:41 | Emergency (ER) | payer OTHER, SELFPAY ==
[2021-07-14 06:41] VITALS: BP 152/90; PULSE 71; RESP 18; TEMP 36; O2SAT 98; BMI 29.7
[2021-07-14] MEDS: Lidocaine/Epi/Tetracaine 50 ML 1 APPLIC TOPICAL (07:23)
--- NOTE | 2021-07-14 07:26 | EX.ED.DYSGE1 ---
HPI <Dr. Re Herring MD - Last Filed: 07/14/21 08:17> History of Present Illness Chief Complaint: Bite <VINNY TRAYLOR - Last Filed: 07/14/21 07:56> History of Present Illness Informant: patient Onset/Context/Timing Onset: Today Narrative Narrative: Presents secondary to tick bite. Patient states that less than 24 hours ago she was [place]. Patient states she was not wearing DEET and layers; however, this morning she noticed pain to her posterior right upper thigh. Patient states that she felt the back of her thigh and felt that there was a tick attached. At that time patient, attempted to remove the tick. Patient states that she does not feel that she has removed the entire tick and is concerned for Lyme disease. Patient denies any other complaints. [facility] <Dr. Re Herring MD - Last Filed: 07/14/21 08:17> [facility] Medical History (Updated 07/14/21 @ 07:[address] Re Herring MD) Severe headache Thyroid disease Home Medications acyclovir 400 mg PO DAILY 07/10/16 [History Last Taken Unknown] levothyroxine 50 mcg PO DAILY 07/10/16 [History Last Taken 11/04/18 05:00] rosuvastatin 5 mg PO DAILY 10/19/18 [History Last Taken Unknown] trazodone 50 mg PO QHS 10/19/18 [History Last Taken Unknown] acetaminophen 1,000 mg PO Q8 PRN 03/28/21 [History Last Taken Unknown] doxycycline monohydrate 100 mg PO BID #20 cap 07/14/21 [Rx Last Taken Unknown] Allergy/AdvReac Type Severity Reaction Status Date / Time insect venom Allergy Swelling Verified 07/14/21 06:46 morphine AdvReac Other Verified 07/14/21 06:46 Surgical History Hx of rotator cuff surgery S/P colonoscopy (~08/24/18) Social History Smoking Status: Current every day smoker tobacco type: cigarettes <VINNY TRAYLOR - Last Filed: 07/14/21 07:56> ROS ED Constitutional Constitutional ED: Denies chills, fever(s) or sweats Eyes Eyes: Denies change in vision ENT ENT ED: Denies ear pain, rhinorrhea or sore throat Cardiovascular Cardiovascular: Denies chest pain or palpitations Respiratory/Chest Respiratory/Chest: Denies cough or dyspnea Gastrointestinal Gastrointestinal: Denies abdominal pain, nausea or vomiting Genitourinary Genitourinary ED: Denies dysuria Musculoskeletal Musculoskeletal: Denies arthralgias, myalgias or neck pain Integumentary Reports as per HPI; Denies rash Neurologic Neurologic: Denies headache(s) or weakness Psychiatric Psychiatric: Denies depression Endocrine Endocrinology: Denies polyuria EXAM <Dr. Re Herring MD - Last Filed: 07/14/21 08:17> Physical Exam Const Vital Signs: 07/14/21 06:41 07/14/21 08:04 Temperature 96.8 F L Temperature Source Temporal Pulse Rate 71 74 Respiratory Rate 18 17 Blood Pressure 152/90 H Blood Pressure Mean 110 Pulse Ox 98 98 Oxygen Delivery Method Room Air <VINNY AGUILLONKATIE - Last Filed: 07/14/21 07:56> Physical Exam Const Vital Signs: 07/14/21 06:41 07/14/21 08:04 Temperature 96.8 F L Temperature Source Temporal Pulse Rate 71 74 Respiratory Rate 18 17 Blood Pressure 152/90 H Blood Pressure Mean 110 Pulse Ox 98 98 Oxygen Delivery Method Room Air Positive well nourished and well developed General Appearance ED: well developed HEENT Reports moist mucous membranes Negative for trauma or tenderness Eyes PERRL and EOMs intact bilaterally Neck no lymphadenopathy and supple Resp normal respiratory effort and clear to auscultation bilaterally Cardio regular rate, regular rhythm and no murmurs GI normal to inspection, nondistended, normoactive bowel sounds and non-tender Palpation: soft Back/Spine no CVA tenderness Cervical Spine: Negative for cervical spine tenderness Extremity normal to inspection General Extremety ED: Negative for edema General Extremity: Negative for edema Neuro oriented x3 Sensorium / Orientation: alert Psych mental status grossly normal Skin Skin Narrative: 2.5 centimeter circular erythematous area to right exterior, upper thigh. Pinpoint area of dark pigmentation. No drainage or streaking. Tenderness to this area. MDM <Dr. Re Herring MD - Last Filed: 07/14/21 08:17> MDM Treatment and Re-Evaluation Narrative: Patient seen and evaluated with [employer] student. I personally interviewed and examined the patient. I was involved in all aspects of patient's orders, interpretation of results, and treatment. Patient presents with tick bite to the posterior right thigh. Patient states he was out in the [place] yesterday. This morning when she sat down she noted something on the back of her right leg. She removed to best as possible but is not sure she got everything. There is a slight area of erythema around the lesion which worried her so she came in for evaluation. Patient sitting upright bed no acute distress. Head and neck examination unremarkable. Extremity exam: Area of erythema measuring approximately 2 cm in diameter on the posterior right thigh with central dark discoloration. No bleeding from the wound. No obvious foreign body, but difficult to evaluate secondary to the discoloration. LET applied to the wound. After 20 minutes area is cleansed. Splinter forceps were used to grasp the tissue and clean the area. Antibiotic ointment is placed and dressing applied. Patient be treated with a course of doxycycline, first dose given here. Return instructions provided. <VINNY TRAYLOR - Last Filed: 07/14/21 07:56> MDM MDM Narrative Medical decision making narrative: LET solution applied to site by nursing. Treatment and Re-Evaluation Narrative: Wound was cleansed with normal saline and Shur-Clens. Area of dark pigmentation removed with splinter forceps. Bacitracin applied with 4 x 4 and tape covering. Patient tolerated well. Patient will be given dose of doxycycline prior to discharge and covered with a 10-day course. Discharge Plan Triage Chief Complaint: Bite ED Provider: Re Herring Dx/Rx/DC Orders Clinical Impression: Tick bite Instructions: ED Tick Bite, Abx Tx Prescriptions: New doxycycline monohydrate 100 MG capsule 100 mg PO BID Qty: 20 RF: 0 No Action acyclovir 400 MG tablet 400 mg PO DAILY RF: 0 levothyroxine 50 MCG tablet 50 mcg PO DAILY RF: 0 trazodone 50 MG tablet 50 mg PO QHS RF: 0 rosuvastatin 5 MG tablet 5 mg PO DAILY RF: 0 acetaminophen 500 MG tablet 1,000 mg PO Q8 PRN (Reason: Mild Pain (Scale Score 1-4)) RF: 0 Primary Care Provider: Joao Herron Referrals: Joao Herron MD [Primary Care Provider] - 1-2 Weeks Disposition Disposition: Home, Self Care Discharge Date/Time: 07/14/21 08:04
[2021-07-14] MEDS: Doxycycline 100 MG CAPSULE PO (08:02)
[2021-07-14 08:04] VITALS: PULSE 74; RESP 17; O2SAT 98
== END 2021-07-14 08:04 | disposition home or self-care (01) ==
PROVIDERS: Emergency Provider Emergency Medicine; PCP Family Medicine; Visit Provider Emergency Medicine
DX: S70.371A Other superficial bite of right thigh, initial encounter (principal); W57.XXXA Bitten or stung by nonvenomous insect and other nonvenomous arthropods, initial encounter; Y93.89 Activity, other specified; Y99.8 Other external cause status; Y92.828 Other wilderness area as the place of occurrence of the external cause; E07.9 Disorder of thyroid, unspecified; F17.200 Nicotine dependence, unspecified, uncomplicated; Z79.899 Other long term (current) drug therapy
CPT/HCPCS: 99283

== ENCOUNTER → 2021-08-29 | Outpatient (CLI) | payer OTHER, SELFPAY ==
--- NOTE | 2021-08-29 11:56 | RAD_ITS ---
EXAM: XR CERVICAL SPINE, 4 OR 5 VIEWS CLINICAL INDICATION: CERVICALGIA TECHNIQUE: Frontal, lateral and bilateral oblique views of the cervical spine. This report was created using Surve[employer] report generation technology. COMPARISON: None. FINDINGS: VERTEBRAE: Partial loss of the normal cervical lordosis may represent muscle spasm. Preserved vertebral body height. No acute fracture. No spondylolisthesis. No significant facet arthropathy. DISC SPACES: Disc space narrowing and vertebral body hypertrophy noted at C4-5, C5-6 and C6-7. No neural foraminal narrowing. SOFT TISSUES: Unremarkable. No prevertebral soft tissue widening. LUNG APICES: Clear. RAD/Cerv Spine 4 or 5 Views IMPRESSION: No acute bone or joint abnormality. Spondylosis. Electronically Signed: Rigo Scott MD at 20:55 EDT ,
== END | disposition home or self-care (01) ==
LOC: MTRAD 11:54
PROVIDERS: PCP Family Medicine; Referring Provider Family Medicine; Visit Provider Family Medicine
DX: M47.812 Spondylosis without myelopathy or radiculopathy, cervical region (principal)
CPT/HCPCS: 72050

== ENCOUNTER 2021-10-12 14:30 | Outpatient (RCR) | payer OTHER, SELFPAY ==
--- NOTE | 2021-09-06 09:26 | HP.PTEVAL ---
Patient's Visit Information GRETA CRESPO is a 61 year old F referred to Physical Therapy by Dr. Joao Herron MD with a diagnosis of NECK PAIN. Date of Evaluation: 09/06/21 Physical Therapist: Kika James PT, Cert MDT - Visit Plan Frequency: 2-3x /Week Duration: 4-6 Weeks Plan: US X 6-8. E-STIM WITH CP OR MH. STM BUT NO MANUAL OR MECHANICAL TRACTION. POSTURE CORRECTION/STRENGTHENING, INSTRUCTION IN APPROPRIATE BODY MECHANICS AND ACTIVITY MODIFICATIONS. RAPHAEL UE ROM, STRETCHING AND STRENGTHENING. HEP INSTRUCTION. 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 STOCKS SHELVES. JUNIOR ENGINEER. Present symptoms: CATCHING AND CRUNCHING IN NECK. LEFT NECK PAIN > RIGHT. HEADACHES. INTERMITTENT L UE TINGLING IF SHE WAKES UP WITH HER ARM UP OVER HER HEAD AT LEAST ONCE A NIGHT. BAD HEADACHES ABOUT ONCE A WEEK LASTING HOURS AND BETTER WITH MEDICINE. ALSO RECENTLY HAVING JAW PAIN. Present since: ABOUT A YEAR AGO BUT DEFINATELY GETTING WORSE AND SPREADING. Pain Scale: Worst - 5/10 Least - /10. Currently: 03/26. Commenced as a result of: NO APPARENT REASON. Symptoms at onset: LEFT NECK/SHLD PAIN AND BURNING. Worse: TURNING HEAD QUICKLY, FIRST THING IN THE MORNING, GETTING JERKED BY DOGS ON WALKS, AFTER RIDING HORSE. Better: MUSCLE RELAXERS, HOT SHOWER, VOLTERAN CREAM. Disturbed sleep: YES. Previous history/Previous treatment: H/O LEFT SHLD SX 2017 FOR ROTATOR CUFF REPAIR AND BICEPTS TENODESIS. This episode: CHIROPRACTOR X ABOUT 3 VISITS BUT DIDN'T HELP. Dizziness: NO. Tinnitis: NO. Nausea: YES - WITH HEADACHES. Shortness of Breath: NO. Difficulty Swollowing: NO. Gait: NORMAL. Accidents: NO. Unexplained weight loss: NO. Imaging: RECENT NECK X-RAYS AT [facility] - SEE EMR - CREVICAL SPONDYLOSIS. PMH/Recent major surgery: R THR [address] ANTONIO - Objective Sitting Posture/Standing Posture: POOR. FH. RSH'S. NO TORTICOLLIS. Active Correction of posture: NE. Other Observations: INDEP GAIT AND TRANSFERS. Sensory deficit: RAPHAEL UE LIGHT TOUCH SENSATION GROSSLY INTACT AND SYMMETRICAL. ROM deficit: RAPHAEL UE ROM WFL. INCREASED NECK PAIN AT THE END OF THE AVAILABLE ROM WITH RAPHAEL SHLD ELEVATION. Motor deficit: RAPHAEL UE'S 5/5 WITH MMT'ING EXCEPT SHLDS 4/5. TESTING OF L SHLD INCREASES L NECK PAIN. Dural Signs: NEGATIVE RAPHAEL UE'S. Cervical Mvmt Loss: Flex: NIL. Pro: NIL. Ext: MOD TO LESLEE. Ret: LESLEE. RSB: MOD. LSB: MOD. R Rot: MOD. L Rot: MOD. PATIENT C/O INCREASED LEFT NECK AND SHLD PAIN WITH CERVICAL ROM TESTING INTO FLEXION, RETRACTION AND RAPHAEL SB TESTING. TESTING DOES NOT PROVOKE UE SX'S OR INCRASED TODD. Postural strength: POOR. Palpation: INCREASED MUSCLE TONE RAPHAEL CERVICAL MUSCULATURE. TENDERNESS WITH PALPATION OF RAPHAEL UT'S LEFT > RIGHT. TREATMENT: NEUROMUSCULAR REEDUCATION - RETRAINING OF MVMT AND POSTURE FOR SITTING, LYING AND STANDING ACTIVITIES. - Balance/Special Test Scores Oswestry Neck Score: 19 - Goals Goal 1:: DECREASE C/O NECK AND L UE SX'S. Goal Time Frame: 4-6 Weeks Goal 2:: IMPROVE PERSONAL CARE, LIFTING, READING, SLEEP, WORK, DRIVING, AND RECREATIONAL FUNCTION Goal Time Frame: 4-6 Weeks Goal 3:: INSTRUCT IN PROPHYLAXIS Goal Time Frame: 4-6 Weeks - Anticipated Interventions Patient/Client Instruction: Educate patient on: Condition, Plan of Care, Risk Factors For the Purpose of:: To improve self management Therapeutic Exercise to Include: Strength training, Body mechanics, Postural training, Flexibilty training, Neuromotor development, Scapular Strength/Stabilization For the Purpose of:: To decrease pain, To increase ROM, To improve muscle performance and motor function, To increase tolerance to activity/condition/position, To improve ability of physical actions for home/community/work/leisure Manual Therapy Techniques to Include: Soft tissue mobilization For the Purpose of:: To decrease pain, To increase ROM, To improve nutrient delivery to tissue TENS: Yes IF ES: Yes Cryotherapy (ice pack, ice massage): Yes Thermo therapy (hot pack): Yes Ultrasound (thermal/non thermal): Yes For the Purpose of:: To decrease pain, To increase ROM, To improve muscle performance and motor function, To increase tolerance to activity/condition/position, To improve ability of physical actions for home/community/work/leisure Thank you for the opportunity to evaluate your patient. For Medicare and Medicare HMO plans, please review the plan of care and approve it. It will need to be FAXED BACK to us at [phone] for Medicare purposes. For Medicare only, by signing this I certify the plan of care. Please let me know if there are questions or concerns regarding this plan of care. Physician Signature: Date:
--- NOTE | 2021-10-12 15:03 | HP.PTREVAL_ITS ---
Dr. Joao Herron MD, It has been my pleasure to treat GRETA CRESPO over the last 9 visits for NECK PAIN. Please see the progress note below for an update on the physical therapy plan of care! Subjective: WHEN I COME I FEEL BETTER AND GET RID OF MY HEADACHE BUT THEN IT COMES BACK. REPORTS COMPLIANCE WITH HEP. NO BETTER WITH HEP. Objective/Function: PATIENT WAS SEEN TODAY FOR RE-ASSESSMENT OF PROGRESS TOWARD THE SET PT GOALS AND THE NEED FOR FURTHER PHYSICAL THERAPY VS READINESS FOR DISCHARGE. UPON EXAM TODAY THERE ARE NO SIGNIFICANT CHANGES SINCE INITIAL EVAL (EXCEPT PATIENT DOES DEMO INCREASED RAPHAEL CERVICAL ROTATION ROM WITH TESTING TODAY COMPARED TO INITIAL EVAL). PHYSICIAN RE-CHECK RECOMMENDED AND PATIENT IS AGREEABLE. Plan Plan: HOLD PT. PATIENT MAY BE A GOOD CANDIDATE FOR DRY NEEDLING - DISCUSSED POSSIBLE BENEFITS WITH PATIENT. Balance/Gait/Functional tests - Balance/Special Test Scores Oswestry Neck Score: 16 Goals Goal 1:: DECREASE C/O NECK AND L UE SX'S. Goal Time Frame: 4-6 Weeks Goal Progress: Not Progressing Goal 2:: IMPROVE PERSONAL CARE, LIFTING, READING, SLEEP, WORK, DRIVING, AND RECREATIONAL FUNCTION Goal Time Frame: 4-6 Weeks Goal Progress: Not Progressing Goal 3:: INSTRUCT IN PROPHYLAXIS Goal Time Frame: 4-6 Weeks Goal Progress: Not Progressing Anticipated Interventions Patient/Client Instruction: Educate patient on: Condition, Plan of Care, Risk Factors For the Purpose of:: To improve self management Therapeutic Exercise to Include: Strength training, Body mechanics, Postural training, Flexibilty training, Neuromotor development, Scapular Strength/Stabilization For the Purpose of:: To decrease pain, To increase ROM, To improve muscle performance and motor function, To increase tolerance to activity/condition/position, To improve ability of physical actions for home/community/work/leisure Manual Therapy Techniques to Include: Soft tissue mobilization For the Purpose of:: To decrease pain, To increase ROM, To improve nutrient delivery to tissue TENS: Yes IF ES: Yes Cryotherapy (ice pack, ice massage): Yes Thermo therapy (hot pack): Yes Ultrasound (thermal/non thermal): Yes For the Purpose of:: To decrease pain, To increase ROM, To improve muscle performance and motor function, To increase tolerance to activity/ condition/position, To improve ability of physical actions for home/community/work/leisure Please do not hesitate to contact me at [phone] by phone or if you have questions or concerns regarding this new plan of care! Sincerely, Kika James, PT, Cert MDT
--- NOTE | 2021-12-25 12:46 | HP.PTDCNRP_ITS ---
GRETA CRESPO was seen in my office for initial evaluation on 09/06/21. The following Plan of Care was established for this patient: Initial Frequency: 2-3x /Week Initial Duration: 4-6 Weeks Patient/Client Instruction: Educate patient on: Condition, Plan of Care, Risk Factors For the Purpose of:: To improve self management Therapeutic Exercise to Include: Strength training, Body mechanics, Postural training, Flexibilty training, Neuromotor development, Scapular Strength/Stabilization For the Purpose of:: To decrease pain, To increase ROM, To improve muscle performance and motor function, To increase tolerance to activity/con dition/position, To improve ability of physical actions for home/community/work/leisure Manual Therapy Techniques to Include: Soft tissue mobilization For the Purpose of:: To decrease pain, To increase ROM, To improve nutrient delivery to tissue TENS: Yes IF ES: Yes Cryotherapy (ice pack, ice massage): Yes Thermo therapy (hot pack): Yes Ultrasound (thermal/non thermal): Yes For the Purpose of:: To decrease pain, To increase ROM, To improve muscle performance and motor function, To increase tolerance to activity/condition/position, To improve ability of physical actions for home/community/work/leisure This patient was last seen in our office 10/12/21. Pertinent comments regarding their Physical therapy will appear below: This patient has not returned to Physical Therapy and is appropriate to return to MD for further follow-up as needed. At this point I will be discontinuing this patient from physical therapy. I would be happy to see this patient again in the future if found appropriate by the physician. Thank you! Kika James, PT, Cert MDT Balance/Gait/Functional tests - Balance/Special Test Scores Oswestry Neck Score: 16
== END 2021-10-12 19:00 | disposition home or self-care (01) ==
LOC: PT 14:30
PROVIDERS: PCP Family Medicine; Referring Provider Family Medicine; Visit Provider Family Medicine
DX: M54.2 Cervicalgia (principal)
CPT/HCPCS: 97035; 97110; 97112; 97140; 97162; 97164

== ENCOUNTER → 2022-01-02 | Outpatient (CLI) | payer OTHER, SELFPAY ==
[2022-01-02 09:28] LABS: Free T3 2.5 pg/mL (2.18-3.98); T4 Free Direct 0.88 ng/dL (0.76-1.46); Thyroid Stim Hormone (TSH) 2.75 uIU/mL (0.358-3.74)
== END | disposition home or self-care (01) ==
LOC: LAB 07:51
PROVIDERS: PCP Family Medicine; Referring Provider Family Medicine; Visit Provider Family Medicine
DX: E03.9 Hypothyroidism, unspecified (principal)
CPT/HCPCS: 36415; 84439; 84443; 84481

== ENCOUNTER 2022-04-19 14:54 | Emergency (ER) | payer OTHER, SELFPAY ==
[2022-04-19 14:54] VITALS: BP 162/82; PULSE 81; RESP 18; TEMP 36; O2SAT 100; BMI 29.9
--- NOTE | 2022-04-19 17:17 | EDS_ITS ---
HPI History of Present Illness Chief Complaint: Laceration Informant: patient Onset/Context/Timing Onset: Today Mechanism/Context: Fall Quality of Pain: Dull Location: Lower lip Worsened by: Nothing Relieved by: Nothing Associated Symptoms Associated Symptoms: Negative for Parasthesias, Weakness, Loss of function, Inability to ambulate, Loss of consciousness or Amnesia Narrative Narrative: Patient presents with a laceration to her lower lip that occurred today. Patient states she was walking up her steps when she tripped and fell forward. Patient states she hit her lower lip on the step. Patient states she has a through and through laceration to her lower lip. Patient denies any loss of consciousness. Patient states her last tetanus is up-to-date. Patient denies any paresthesias or weakness. Patient denies any neck or back pain. Patient denies any other injuries. Tetanus Immunization: <5 years PFSH [facility] Medical History Contact with and (suspected) exposure to other viral communicable diseases Severe headache Thyroid disease URI (upper respiratory infection) Home Medications acyclovir 400 mg tablet 400 mg PO DAILY COLD SORES 07/10/16 [History Last Taken Unknown] levothyroxine 50 mcg tablet 50 mcg PO DAILY THYROID 07/10/16 [History Last Taken 11/04/18 05:00] rosuvastatin 5 mg tablet 5 mg PO DAILY CHOLESTEROL 10/19/18 [History Last Taken Unknown] trazodone 50 mg tablet 50 mg PO QHS SLEEP 10/19/18 [History Last Taken Unknown] acetaminophen 500 mg tablet 1,000 mg PO Q8 PRN Mild Pain (Scale Score 1-4) 03/28/21 [History Last Taken Unknown] amoxicillin 875 mg-potassium clavulanate 125 mg tablet 1 tab PO Q12H #14 tabs 02/15/22 [Rx Last Taken Unknown] Allergy/AdvReac Type Severity Reaction Status Date / Time insect venom Allergy Swelling Verified 04/19/22 14:56 morphine AdvReac Other Verified 04/19/22 14:56 Surgical History Hx of rotator cuff surgery S/P colonoscopy (~08/24/18) Social History Smoking Status: Current every day smoker tobacco type: cigarettes ROS ROS ED Constitutional Constitutional ED: Denies chills or fever(s) Eyes Eyes: Denies blurry vision or change in vision ENT ENT ED: Denies rhinorrhea or sore throat Cardiovascular Cardiovascular: Denies chest pain or palpitations Respiratory/Chest Respiratory/Chest: Denies cough or dyspnea Gastrointestinal Gastrointestinal: Denies nausea or vomiting Genitourinary Genitourinary ED: Denies dysuria or hematuria Musculoskeletal Musculoskeletal: Denies back pain or neck pain Integumentary Denies abscess or rash Neurologic Neurologic: Denies headache(s) or weakness Allergic/Immunologic Allergic/Immunologic ED: Denies mouth swelling or urticaria EXAM Physical Exam Const Vital Signs: 04/19/22 14:54 Temperature 96.8 F L Temperature Source Temporal Pulse Rate 81 Respiratory Rate 18 Blood Pressure 162/82 H Blood Pressure Mean 108 Pulse Ox 100 Oxygen Delivery Method Room Air Positive well nourished and well developed General Appearance ED: well developed and NAD HEENT HEENT Narrative: There is a 2 cm full-thickness linear laceration of the external surface of the lower lip. This does go through to the mucosal surface. The laceration on the mucosal surface is only 0.5 cm in length. There is no active bleeding. There is mild gapping of the wound margins. There are no foreign bodies visualized. Teeth are intact. trauma Eyes PERRL and EOMs intact bilaterally Neck full ROM Neuro oriented x3, CN's II-XII intact bilaterally, moves all extremities, no focal motor deficits and no sensory deficits noted [place] Coma Scale: document GCS findings Spontaneous Obeys Commands Oriented 15 Sensorium / Orientation: alert Motor Exam: strength 5/5 throughout Psych mental status grossly normal PROC Procedures Lacerations Lower lip: Length: 2 cm Depth: Muscle Shape: Linear Prep: Sterile Conditions Laceration repair: Irrigated, Lidocaine with epi, Local, Skin sutures and Wound explored Irrigated (ml): 50 Number of Sutures/Shel[place]: 4 Suture Information: Ethilon, Simple and 6-0 MDM MDM MDM Narrative Medical decision making narrative: The wound was cleaned and irrigated with copious amounts of normal saline. The wound was anesthetized with 1% lidocaine with epinephrine locally. The wound was closed with 4 simple interrupted #6-0 nylon sutures under sterile technique. Patient tolerated the procedure well. Bacitracin dressing was applied. Patient was given a tetanus booster. Patient was instructed to keep the wound clean and dry. Patient was instructed to follow-up with her primary care physician in 5 days for wound recheck and suture removal. Patient understood and was agreeable with the plan. All questions were answered. Discharge Plan Triage Chief Complaint: Laceration ED Provider: Blayne Dailey Dx/Rx/DC Orders Clinical Impression: Laceration of lower lip, Fall Instructions: ED Laceration, Lip or Mouth, ED Laceration Minimize Scars Prescriptions: No Action amoxicillin-pot clavulanate 875-125 mg tablet 1 tab PO Q12H Qty: 14 0RF acyclovir 400 MG tablet 400 mg PO DAILY Label Comments: cold sores levothyroxine 50 MCG tablet 50 mcg PO DAILY Label Comments: thyroid trazodone 50 MG tablet 50 mg PO QHS rosuvastatin 5 MG tablet 5 mg PO DAILY acetaminophen 500 MG tablet 1,000 mg PO Q8 PRN (Reason: Mild Pain (Scale Score 1-4)) Stand Alone Forms: ED Work / School Excuse Primary Care Provider: Joao Herron Referrals: Joao Herron MD [Primary Care Provider] - 5 Days for suture removal Disposition Disposition: Home, Self Care
[2022-04-19] MEDS: Diphth,Pertuss(Acell),Tet Vac 0.5 ML Vial IM (18:46)
[2022-04-19] MEDS: Lidocaine 1% (20 ml mdv) 20 ML Vial INFILT (18:46)
== END 2022-04-19 18:48 | disposition home or self-care (01) ==
PROVIDERS: Emergency Provider Emergency Medicine; PCP Family Medicine; Visit Provider Emergency Medicine
DX: S01.511A Laceration without foreign body of lip, initial encounter (principal); F17.210 Nicotine dependence, cigarettes, uncomplicated; Z23 Encounter for immunization; W10.9XXA Fall (on) (from) unspecified stairs and steps, initial encounter
CPT/HCPCS: 12011; 90471; 90715; 99283

== ENCOUNTER → 2022-07-17 | Outpatient (CLI) | payer OTHER, SELFPAY ==
--- NOTE | 2022-07-17 14:19 | CT_ITS ---
STUDY: CT CHEST WITHOUT CONTRAST- LOW DOSE SCREENING PROTOCOL REASON FOR EXAM: Female, 62 years old. SMOKING pack per year history. No current symptoms of lung cancer or pulmonary infection. Shared decision-making with referring PCP documented in patient''s record. RADIATION DOSAGE (If Supplied By Facility): CTDIvol = ( 3.02 ) mGy, DLP = ( 101.56 ) mGycm TECHNIQUE: Low dose screening CT examination performed from the base of the neck to the upper abdomen. Sagittal and coronal reformatted images performed. Sagittal and coronal MIP images provided. The measurements provided are average, rounded measurements per ACR guidelines. Individualized dose optimization techniques were used for this CT. COMPARISON: None. FINDINGS: No discrete pulmonary nodules. There are emphysematous changes. The lungs are otherwise normal. There is no demonstrated pleural abnormality. Normal heart and pericardium. There are calcifications of the coronary arteries. Normal mediastinum. Normal hilar regions. Normal unenhanced pulmonary arteries. There is atherosclerotic calcification of the aortic arch with tortuosity and elongation of the aortic arch and descending thoracic aorta. There are multi-level degenerative changes of the thoracic spine. There is no demonstrated abnormality of the visualized upper abdomen. CT/Low Dose CT Lung Screening IMPRESSION: No significant indeterminate incidental findings requiring additional imaging. ASSESSMENT CATEGORY: LUNG-RADS 1: Negative. Continue annual screening with LDCT in 12 months. Electronically Signed: Bogdan Cervantes MD at 18:32 EDT ,
== END | disposition home or self-care (01) ==
LOC: CT 14:18
PROVIDERS: PCP Family Medicine; Referring Provider Family Medicine; Visit Provider Family Medicine
DX: Z12.2 Encounter for screening for malignant neoplasm of respiratory organs (principal); Z87.891 Personal history of nicotine dependence
CPT/HCPCS: 71271

== ENCOUNTER 2023-08-26 10:57 | Day surgery (SDC) | payer OTHER, SELFPAY ==
[2023-08-26 11:13] VITALS: BP 149/86; PULSE 88; RESP 18; TEMP 36.4; O2SAT 98; BMI 29.0
[2023-08-26] MEDS: Lactated Ringers 1,000 ML 15 ML IV (11:22)
--- NOTE | 2023-08-26 12:00 | COLBX_PTH ---
PATIENT: GRETA CRESPO [place] [facility] [place][id number] AGE/SX: 63/F ROOM: RE08/26/[address]: Dr. Rocky Don DO : 1960 BED: DIS: 08/26/2023 SPEC #: [id number] RECD: 08/26/23 13:43 STATUS: ERNESTINA REEnrico #: [id number] ABIGAIL: 08/26/23 12:[address]: Rocky Don DEPT: SURGICAL PATHOLOGY RECD BY: Khalida López ENTERED: 08/26/23 14:09 SP TYPE: COLON BX OTHR DR: Dr. Joao Herron MD Tissues: Sigmoid colon biopsy Procedures: Surgery Specimen Level IV HEADER OPERATION: Colonoscopy with polypectomy PRE-OP DIAGNOSIS: Screening TISSUE SUBMITTED: Sigmoid polyp by cold snare MICROSCOPIC DIAGNOSIS Sigmoid colon polyp, biopsy: Tubular adenoma. Hyperplastic polyp. AM/mr 08/27/2023 MICROSCOPIC DESCRIPTION Slides are reviewed. GROSS DESCRIPTION Received in fixative is one container labeled with the patient's name and designated Sigmoid polyp cold snare. The specimen consists of two irregular fragments of light jameson soft tissue that in aggregate measure 1.0 x 0.5 x 0.1 cm. The specimen is totally submitted in one cassette. ABHI/ 08/26/2023 TC:5 CPT:97956
--- NOTE | 2023-08-26 12:00 | PCM.HP.STD ---
HPI - General General Date of Admission: 08/26/23 Date of Service: 08/26/23 Chief Complaint: Screening colonoscopy HPI Narrative GRETA CRESPO, is a 63 F who presents today for screening colonoscopy. She does not have dental pain. She denied any vomiting. She denied any chest pain or shortness of breath. Overall she is in very good health. She does have past medical history of hypothyroidism and hypertension with mild depression. All of those are controlled on medicines. [facility] Medical History (Updated 08/21/23 @ 12:49 by Rebecca Foy) Wears contact lenses Cancer Wears partial dentures Anxiety Depression Alcohol use Arthritis High cholesterol Migraine headache Heartburn Smoker Hx of colonic polyps Contact with and (suspected) exposure to other viral communicable diseases URI (upper respiratory infection) Thyroid disease Home Medications ?Medication ?Instructions ?Recorded ?Last Taken ?Type acyclovir 400 mg tablet 400 mg PO DAILY COLD SORES 07/10/16 08/25/23 History levothyroxine 50 mcg tablet 50 mcg PO DAILY THYROID 07/10/16 08/25/23 History rosuvastatin 5 mg tablet 5 mg PO DAILY CHOLESTEROL 10/19/18 08/25/23 History trazodone 50 mg tablet 50 mg PO QHS SLEEP 10/19/18 08/24/23 History sertraline 100 mg tablet 100 mg PO DAILY 08/19/23 08/25/23 History Allergy/AdvReac Type Severity Reaction Status Date / Time insect venom Allergy Swelling Verified 08/26/23 11:12 morphine AdvReac Other Verified 08/26/23 11:12 Surgical History (Updated 08/21/23 @ 12:49 by Rebecca Foy) Hx of total hip arthroplasty S/P colonoscopy (~08/24/18) Hx of rotator cuff surgery Social History (Updated 08/19/23 @ 13:11 by Julia De La Garza) current occupational status: employed current occupation: [employer] Smoking Status: Current every day smoker tobacco type: cigarettes substance use type: does not use ROS Review of Systems ROS Unobtainable: other Constitutional Constitutional: Denies fatigue, fever(s), poor appetite, weight gain or weight loss ENT HEENT: Denies mouth lesions Cardiovascular Cardiovascular: Denies abdominal bloating, abdominal edema or abdominal pain Respiratory/Chest Respiratory/Chest: Denies change in mental status, change in phlegm color, chest congestion or chest tightness Gastrointestinal Gastrointestinal: Denies belching, bloating, change in bowel habits, change in stool character, chewing difficulty, coffee ground emesis, constipation, cramping, diarrhea, dyspepsia, dysphagia, early satiety, excessive flatus, fecal incontinence, heartburn, hematemesis, hematochezia, hemorrhoids, loose stools, melena, nausea, odynophagia, rectal bleeding, tenesmus, vomiting or weight changes Genitourinary Genitourinary: Denies abdominal discomfort, burning urination or itching Musculoskeletal Musculoskeletal: Reports as per HPI; Denies muscle weakness or myalgias Integumentary Integumentary: Denies jaundice Neurologic Neurologic: Denies lack of coordination or weakness Psychiatric Psychiatric: Denies confusion, depression, memory loss, mood swings, paranoia or suicidal ideation Endocrine Endocrinology: Denies systems reviewed and no addt'l complaints, except as documented Hematologic/Lymphatic Hematologic/Lymphatic: Denies anemia, easy bleeding, easy bruising or lymphadenopathy Allergic/Immunologic Allergic/Immunologic: Denies systems reviewed and no addt'l complaints, except as documented Vital Signs Vital Signs Vital Signs: 08/26/23 11:13 08/26/23 11:13 Temperature 97.5 F L Temperature Source Temporal Pulse Rate 88 Respiratory Rate 18 Respiratory Pattern Normal Blood Pressure 149/86 H Blood Pressure Mean 107 Blood Pressure Source Monitor Blood Pressure Position Semi-Fowlers Blood Pressure Location Left Arm Pulse Ox 98 Oxygen Delivery Method Room Air Weight Weight: 179 lb 14.355 oz Body Mass Index (BMI) 29.0 Physical Exam Const alert General Appearance: cooperative Orientation / Consciousness: oriented to person HEENT hearing grossly normal bilaterally Head and Scalp: normal to inspection Face and Sinus: face symmetric Nose: external nose normal Mouth: oral and palatal mucosa normal Eyes conjunctivae normal General Eye: normal appearance of both eyes Neck full ROM General: normal visual inspection Lymph Lymphatic: no lymphadenopathy noted Chest inspection of chest normal and palpation of chest normal Chest: symmetrical chest wall rise Resp normal respiratory effort Effort and Inspection: able to speak in complete sentences Cardio regular rate GI non-distended Percussion: normal to percussion Rectal Exam: deferred Neuro Speech: speech normal Gait (Neuro): normal gait Assessment & Plan Assessment/Plan (1) Encounter for screening for malignant neoplasm of colon: PLAN: 63-year-old comes in for screening colonoscopy. She was explained alternatives, risk, benefits including not withstanding bleeding, infection, sepsis, perforation, need for emergent surgery and . She will have an ASA of 3.
[2023-08-26 12:47] VITALS: BP 108/64; BP 149/86; PULSE 76; RESP 18; TEMP 36.6; O2SAT 98
--- NOTE | 2023-08-26 12:48 | OP.CCLET_ITS ---
08/26/2023 Joao Herron MD [address] [id number] Re : Colonoscopy procedure for Yesika Serna Dear Dr. Herron This procedure was performed on Saturday, August 26, 2023. My impressions and recommendations are as follows: Impressions : - Diverticulosis in the recto-sigmoid colon, in the sigmoid colon, in the descending colon and at the splenic flexure. - One 5 mm polyp at the recto-sigmoid colon, removed with a cold snare. Resected and retrieved. Recommendations : - Repeat colonoscopy in 5 years for surveillance. - Continue present medications. My findings are described in the full procedure note, which is enclosed. If I can be of further assistance, please feel free to contact me at . Sincerely, Rocky Don, 08/26/2023 12:48:02 PM This report has been signed electronically.
--- NOTE | 2023-08-26 12:48 | OP.COLON_ITS ---
Patient Name: Yesika Serna Procedure Date: 08/26/2023 11:42 AM Date of : 1960 Age: 63 Procedure: Colonoscopy Indications: Screening for colorectal malignant neoplasm Providers: DO Sindhu Beltre MD: Joao Herron MD Medicines: Monitored Anesthesia Care Patient Profile: This is a 63 year old female. Refer to note in patient chart for documentation of history and physical. Last Colonoscopy: more than 10 years ago. Complications: No immediate complications. Procedure: Pre-Anesthesia Assessment: - Prior to the procedure, a History and Physical was performed, and patient medications and allergies were reviewed. The patient is competent. The risks and benefits of the procedure and the sedation options and risks were discussed with the patient. All questions were answered and informed consent was obtained. Patient identification and proposed procedure were verified by the physician in the pre-procedure area. Mental Status Examination: alert and oriented. Airway Examination: normal oropharyngeal airway and neck mobility. Respiratory Examination: clear to auscultation. CV Examination: normal. Prophylactic Antibiotics: The patient does not require prophylactic antibiotics. Prior Anticoagulants: The patient has taken no anticoagulant or antiplatelet agents. ASA Grade Assessment: II - A patient with mild systemic disease. After reviewing the risks and benefits, the patient was deemed in satisfactory condition to undergo the procedure. The anesthesia plan was to use monitored anesthesia care (MAC). Immediately prior to administration of medications, the patient was re-assessed for adequacy to receive sedatives. The heart rate, respiratory rate, oxygen saturations, blood pressure, adequacy of pulmonary ventilation, and response to care were monitored throughout the procedure. The physical status of the patient was re-assessed after the procedure. After I obtained informed consent, the scope was passed under direct vision. Throughout the procedure, the patient's blood pressure, pulse, and oxygen saturations were monitored continuously. The Colonoscope was introduced through the anus and advanced to the cecum, identified by appendiceal orifice and ileocecal valve. The colonoscopy was performed without difficulty. The patient tolerated the procedure well. The quality of the bowel preparation was adequate. Scope In: 12:19:23 PM Scope Withdrawal Time 0 hours 12 minutes 30 seconds Scope Out: 12:39:18 PM Total Procedure Duration Time 0 hours 19 minutes 55 seconds Findings: The perianal and digital rectal examinations were normal. Multiple small and large-mouthed diverticula were found in the recto-sigmoid colon, sigmoid colon, descending colon and splenic flexure. A 5 mm polyp was found in the recto-sigmoid colon. The polyp was sessile. The polyp was removed with a cold snare. Resection and retrieval were complete. Verification of patient identification for the specimen was done. Estimated blood loss was minimal. Impression: - Diverticulosis in the recto-sigmoid colon, in the sigmoid colon, in the descending colon and at the splenic flexure. - One 5 mm polyp at the recto-sigmoid colon, removed with a cold snare. Resected and retrieved. Recommendation: - Repeat colonoscopy in 5 years for surveillance. - Continue present medications. Procedure Code(s): --- Professional --- 89476, Colonoscopy, flexible; with removal of tumor(s), polyp(s), or other lesion(s) by snare technique CPT copyright 2021 [employer]. All rights reserved. The codes documented in this report are preliminary and upon line assigner review may be revised to meet current compliance requirements. Rocky Don DO 08/26/2023 12:48:02 PM This report has been signed electronically. Number of Addenda: 0 Note Initiated On: 08/26/2023 11:42 AM
[2023-08-26 12:50] VITALS: BP 115/65; BP 149/86; PULSE 69; RESP 8; O2SAT 99
[2023-08-26 12:55] VITALS: BP 114/85; BP 149/86; PULSE 66; RESP 18; O2SAT 100
[2023-08-26 13:00] VITALS: BP 130/73; BP 149/86; PULSE 62; RESP 18; TEMP 36.3; O2SAT 100
[2023-08-26 13:29] VITALS: BP 149/86
== END 2023-08-26 13:30 | disposition home or self-care (01) ==
LOC: SDC 10:58 → AC 11:00
PROVIDERS: PCP Family Medicine; Referring Provider Family Medicine; Visit Provider Internal Medicine Gastroenterology
PROC: 0DJD8ZZ Inspection of Lower Intestinal Tract, Via Natural or Artificial Opening Endoscopic (ICD-10-PCS; CPT 45378; principal; 2023-08-26 11:55)
DX: Z12.11 Encounter for screening for malignant neoplasm of colon (principal); I10 Essential (primary) hypertension; F17.210 Nicotine dependence, cigarettes, uncomplicated; D12.5 Benign neoplasm of sigmoid colon; K57.30 Diverticulosis of large intestine without perforation or abscess without bleeding; E78.00 Pure hypercholesterolemia, unspecified; E03.9 Hypothyroidism, unspecified; F32.A Depression, unspecified; Z79.899 Other long term (current) drug therapy; Z86.010 Personal history of colon polyps; Z86.16 Personal history of COVID-19
CPT/HCPCS: 45385; 88305; J7120; J2405

== ENCOUNTER 2023-11-13 07:10 | Emergency (ER) | payer OTHER, SELFPAY ==
[2023-11-13 07:11] VITALS: BP 171/79; PULSE 67; RESP 14; TEMP 36.1; O2SAT 98
--- NOTE | 2023-11-13 07:30 | EDS_ITS ---
HPI History of Present Illness Chief Complaint: Eye Problem Informant: patient Narrative Narrative: 63-year-old female presenting to the emergency room with left lower eyelid swelling and pain. Patient began to have a spot on her lower eyelash margin that became tender and has progressively become more swollen and red. She denies any change in vision. No redness of the eye itself. No double vision. She wears a contact in the right eye. She has been using warm compresses. [facility] Medical History Wears contact lenses Cancer Wears partial dentures Anxiety Depression Alcohol use Arthritis High cholesterol Migraine headache Heartburn Smoker Hx of colonic polyps Contact with and (suspected) exposure to other viral communicable diseases URI (upper respiratory infection) Thyroid disease Home Medications ?Medication ?Instructions ?Recorded ?Last Taken ?Type acyclovir 400 mg tablet 400 mg PO DAILY COLD SORES 07/10/16 08/25/23 History levothyroxine 50 mcg tablet 50 mcg PO DAILY THYROID 07/10/16 08/25/23 History rosuvastatin 5 mg tablet 5 mg PO DAILY CHOLESTEROL 10/19/18 08/25/23 History trazodone 50 mg tablet 50 mg PO QHS SLEEP 10/19/18 08/24/23 History sertraline 100 mg tablet 100 mg PO DAILY 08/19/23 08/25/23 History cephalexin 500 mg capsule 500 mg PO Q6 7 days #28 CAPSULES 11/13/23 Unknown Rx Allergy/AdvReac Type Severity Reaction Status Date / Time insect venom Allergy Swelling Verified 11/13/23 07:11 morphine AdvReac Other Verified 11/13/23 07:11 Surgical History Hx of total hip arthroplasty S/P colonoscopy (~08/24/18) Hx of rotator cuff surgery Social History current occupational status: employed current occupation: [employer] Smoking Status: Current every day smoker tobacco type: cigarettes substance use type: does not use ROS ROS ED Constitutional Constitutional ED: Denies chills or weight loss Eyes Eyes: Reports other Details: See history of present illness ; Denies blurry vision, change in vision or diplopia ENT ENT ED: Denies ear pain, rhinorrhea or sore throat Cardiovascular Cardiovascular: Denies chest pain, orthopnea, palpitations or racing heartbeat Respiratory/Chest Respiratory/Chest: Denies cough, dyspnea or orthopnea Gastrointestinal Gastrointestinal: Denies abdominal pain, diarrhea, nausea or vomiting Genitourinary Genitourinary ED: Denies dysuria, hematuria or urinary frequency Musculoskeletal Musculoskeletal: Denies arthralgias or myalgias Integumentary Denies abscess or rash Neurologic Neurologic: Denies headache(s) or weakness Psychiatric Psychiatric: Denies anxiety, depression, suicidal ideation or suicidal thoughts Endocrine Endocrinology: Denies polydipsia, polyphagia or polyuria Allergic/Immunologic Allergic/Immunologic ED: Denies mouth swelling, tongue swelling or urticaria EXAM Physical Exam Const Vital Signs: 11/13/23 07:11 Temperature 96.9 F L Temperature Source Temporal Pulse Rate 67 Respiratory Rate 14 Blood Pressure 171/79 H Blood Pressure Mean 109 Pulse Ox 98 Oxygen Delivery Method Room Air Positive well nourished and well developed General Appearance ED: well developed HEENT Reports normocephalic, head/scalp atraumatic and moist mucous membranes Eyes PERRL and EOMs intact bilaterally Eyes Narrative: The left eye itself appears normal. There is no hyphema no subconjunctival hemorrhage or injection. No obvious corneal abrasion. Mid lower left eyelid demonstrates some focal swelling along the eyelash margin consistent with a stye. There is some mild redness and swelling of the lower eyelid extending down. Neck no lymphadenopathy, supple and no JVD Resp normal respiratory effort and clear to auscultation bilaterally Cardio regular rate, regular rhythm and no murmurs GI normal to inspection, nondistended, normoactive bowel sounds and non-tender Palpation: soft Back/Spine no CVA tenderness and normal ROM Extremity normal to inspection General Extremety ED: Negative for edema General Extremity: Negative for edema Neuro oriented x3 and CN's II-XII intact bilaterally Sensorium / Orientation: alert Motor Exam: strength 5/5 throughout Psych mental status grossly normal Mood & Affect: Negative for depressed or tearful Skin no rashes or lesions noted and no wounds MDM MDM MDM Narrative Medical decision making narrative: Differential diagnosis includes but not limited to stye/hordeolum, preseptal and septal cellulitis, conjunctivitis corneal abrasion I recommend the patient continue warm compresses. We can provide some erythromycin ophthalmic ointment though not definitive for treatment. With the lower lid becoming erythematous extending down towards the forehead-given consideration to septal and preseptal cellulitis but this seems more localized. We can also use some Keflex. Patient was advised if not improving she would need to see ophthalmology or return if worsening/concerns. Patient is understanding of plan is comfortable with that History & Record Review Discussion w/independent historian: Patient Discharge Plan Triage Chief Complaint: Eye Problem ED Provider: Miguel Lau Dx/Rx/DC Orders Clinical Impression: Stye external, Pain and swelling of eyelid of left eye Instructions: ED Stye Prescriptions: New cephalexin 500 mg capsule 500 mg PO Q6 7 Days Qty: 28 0RF No Action sertraline 100 mg tablet 100 mg PO DAILY acyclovir 400 MG tablet 400 mg PO DAILY Patient Comments: cold sores levothyroxine 50 MCG tablet 50 mcg PO DAILY Patient Comments: thyroid trazodone 50 MG tablet 50 mg PO QHS rosuvastatin 5 MG tablet 5 mg PO DAILY Primary Care Provider: Joao Herron Referrals: Joao Herron MD [Primary Care Provider] - Kiran Barker MD [Med Staff - Active Staff] - 3-5 Days if not improving Activity Restrictions/Additional Instructions: Apply a thin ribbon of the eye ointment to the lower lid margin 5 times a day for the next 5 days. Continue warm compresses 20-minute sessions 3-5 times per day. If not improving please follow-up with ophthalmology. If worsening or concerns please return to emergency Print Language: Icelandic Disposition Disposition: Home, Self Care
[2023-11-13] MEDS: Erythromycin Base 1 OPTH.TUBE 1 APPLIC LEFT EYE (07:55)
== END 2023-11-13 08:12 | disposition home or self-care (01) ==
LOC: ED 07:50
PROVIDERS: Emergency Provider Emergency Medicine; PCP Family Medicine; Visit Provider Emergency Medicine
DX: H00.015 Hordeolum externum left lower eyelid (principal); F17.210 Nicotine dependence, cigarettes, uncomplicated; E78.00 Pure hypercholesterolemia, unspecified; Z79.899 Other long term (current) drug therapy
CPT/HCPCS: 99282

== ENCOUNTER → 2024-01-22 | Outpatient (CLI) | payer OTHER, SELFPAY | END | disposition home or self-care (01) | LOC: OPBD 14:14 | PROVIDERS: PCP Family Medicine; Referring Provider Family Medicine; Visit Provider Family Medicine | DX: Z13.820 Encounter for screening for osteoporosis (principal); Z78.0 Asymptomatic menopausal state; Z12.31 Encounter for screening mammogram for malignant neoplasm of breast | CPT/HCPCS: 77063; 77067; 77080 ==

== ENCOUNTER 2024-03-03 07:44 | Emergency (ER) | payer OTHER, SELFPAY ==
[2024-03-03 07:44] VITALS: BP 129/87; PULSE 87; RESP 18; TEMP 36.9; O2SAT 100; BMI 29.9
--- NOTE | 2024-03-03 07:48 | EX.ED.DYSGE1 ---
HPI History of Present Illness Chief Complaint: Abd Pain [facility] Medical History Wears contact lenses Cancer Wears partial dentures Anxiety Depression Alcohol use Arthritis High cholesterol Migraine headache Heartburn Smoker Hx of colonic polyps Contact with and (suspected) exposure to other viral communicable diseases URI (upper respiratory infection) Thyroid disease Home Medications ?Medication ?Instructions ?Recorded ?Last Taken ?Type acyclovir 400 mg tablet 400 mg PO DAILY COLD SORES 07/10/16 08/25/23 History levothyroxine 50 mcg tablet 50 mcg PO DAILY THYROID 07/10/16 08/25/23 History rosuvastatin 5 mg tablet 5 mg PO DAILY CHOLESTEROL 10/19/18 08/25/23 History trazodone 50 mg tablet 50 mg PO QHS SLEEP 10/19/18 08/24/23 History sertraline 100 mg tablet 100 mg PO DAILY 08/19/23 08/25/23 History cephalexin 500 mg capsule 500 mg PO Q6 7 days #28 CAPSULES 11/13/23 Unknown Rx Allergy/AdvReac Type Severity Reaction Status Date / Time insect venom Allergy Swelling Verified 03/03/24 07:44 morphine AdvReac Other Verified 03/03/24 07:44 Surgical History Hx of total hip arthroplasty S/P colonoscopy (~08/24/18) Hx of rotator cuff surgery Social History current occupational status: employed current occupation: [employer] Smoking Status: Current every day smoker tobacco type: cigarettes substance use type: does not use EXAM Physical Exam Const Vital Signs: 03/03/24 07:44 Temperature 98.4 F Temperature Source Oral Pulse Rate 87 Respiratory Rate 18 Blood Pressure 129/87 H Blood Pressure Mean 101 Pulse Ox 100 Oxygen Delivery Method Room Air MDM MDM MDM Narrative Medical decision making narrative: HISTORY OF PRESENT ILLNESS: 63-year-old female presents with lower abdominal pain. States this began on Friday night approximately 4 days prior to arrival. She also complains of diarrhea. Denies any recent travel, hospitalizations, antibiotics. Denies any sick contacts. Denies fever or vomiting. Notes multiple episodes of watery stools over the last 6 to 12 hours. Denies urinary complaints. Denies history of kidney stones or diverticulitis. Notes history of cholecystectomy but denies any other past abdominal surgical history. Denies chest pain or shortness of breath. Denies palpitations. Denies syncope. Denies vaginal bleeding or discharge. REVIEW OF SYSTEMS: Pertinent positives: Abdominal pain, diarrhea Pertinent negatives: As per HPI PHYSICAL EXAM: Nursing triage notes reviewed, Vital signs reviewed Constitutional: please see [facility] HENT: MMM Eyes: Pupils equal round and reactive to light, Extraocular muscles intact Neck: No stridor, no JVD, full neck ROM Lungs: Clear to auscultation, No wheezing or rales. No increased work of breathing, no conversational dyspnea, no accessory muscle use, no nasal flaring. No respiratory distress noted Heart: Regular rate and rhythm, No murmurs, No rubs and No gallops, 2+ distal pulses (radial, femoral, posterior tibial) in all extremities Abdomen: Soft, diffuse lower TTP. No suprapubic TTP. No rigidity, rebound or guarding, no obvious peritoneal signs, no palpable pulsatile abdominal masses, no auscultated abdominal bruit : No CVAT Extremities: No edema Neuro: No new focal neurological deficits, cranial nerves II through XII intact, 5/5 strength in all present extremities. Intact sensation to light touch in all present extremities, 2+ reflexes bilateral patella tendons. Skin: No rash or lesions noted MEDICAL DECISION MAKING: Chief Complaint: Abdominal pain External records reviewed: Reviewed prior imaging, allergies, problem list, vital signs, current medications Factors affecting care: Hyperlipidemia, hypothyroidism Social determinants of health: History of alcohol use History obtained from others: none Consults: none [facility] Narrative: The patient was hemodynamically stable, afebrile and nontoxic-appearing. Exam was somewhat benign however she did have some lower abdominal TTP. I considered the following differential diagnosis: AAA, small bowel obstruction, abdominal perforation, appendicitis, pancreatitis, hepatobiliary pathology (acute cholecystitis), mesenteric ischemia, pathology (ie nephrolithiasis, pyelonephritis). Given the patient's age, history abdominal surgery and lower abdominal pain did obtain a CT scan rule out any obvious life or limb threatening etiology, acute surgical etiology in the abdomen or pelvis. Given report diarrhea I did order enteric stool panel Initially resuscitated the patient with 500 cc's normal saline. ALL IMAGES (IF OBTAINED) HAVE BEEN PERSONALLY REVIEWED AND INTERPRETED BY MYSELF. CBC with marked leukocytosis consistent with systemic inflammation, no anemia or thrombocytopenia noted CT the abdomen pelvis shows evidence of acute diverticulitis which is likely the cause of patient's pain. Lipase is wnl indicating no pancreatic inflammation. BMP without significant electrolyte abnormalities, no ROB, noted slight elevations in liver enzymes Urinalysis shows no evidence of urinary inflammation suggestive of UTI The synthesis of the patient's history, physical exam, labs images suggest acute diverticulitis. Will give oral Augmentin. Will give strict return precautions. The patient and/or family, caregivers express understanding. The patient and/or family, caregivers agrees with the plan. Shared decision making: I will have a discussion with the patient and or visitors regarding risk/benefits of further testing or admission. They will be made aware of of the risk/benefits inherent in this decision they will be given the opportunity to voice understanding. Total critical care time today provided was at least 0 minutes. This excludes separately billable procedures. Critical care time (if documented) is secondary to the patient having high probability of clinically significant/life threatening deterioration in the patient's condition which required my urgent intervention. Impression: 1. Acute abdominal pain 2. Diarrhea 3. Acute diverticulitis Dispo: Discharge home This note was generated with [employer] dictation software. It may contain incorrect words, spelling, and punctuation that were not noted in review of the chart prior to signing. Discharge Plan Triage Chief Complaint: Abd Pain ED Provider: Jalen Avalos Dx/Rx/DC Orders Prescriptions: No Action sertraline 100 mg tablet 100 mg PO DAILY acyclovir 400 MG tablet 400 mg PO DAILY Patient Comments: cold sores levothyroxine 50 MCG tablet 50 mcg PO DAILY Patient Comments: thyroid trazodone 50 MG tablet 50 mg PO QHS rosuvastatin 5 MG tablet 5 mg PO DAILY cephalexin 500 mg capsule 500 mg PO Q6 7 Days Qty: 28 0RF Primary Care Provider: Joao Herron Referrals: Joao Herron MD [Primary Care Provider] - Print Language: Algerian
--- NOTE | 2024-03-03 08:02 | CT_ITS ---
STUDY: CT ABDOMEN AND PELVIS WITH CONTRAST REASON FOR EXAM: Female, 63 years old. Acute lower abdominal pain, diarrhea RADIATION DOSAGE (If Supplied By Facility): CTDIvol = ( 19.42 ) mGy, DLP = ( 956.85 ) mGycm TECHNIQUE: Transaxial images were obtained from the dome of the diaphragm to the symphysis pubis without oral contrast. IV 100mL Isovue-370 was administered. Sagittal and coronal images were reconstructed. Individualized dose optimization techniques were used for this CT. COMPARISON: None. FINDINGS: The visualized lung bases are unremarkable. Coronary artery calcification. Normal liver. The patient is status post cholecystectomy. Normal spleen. Normal pancreas. Normal bilateral adrenal glands. Normal right kidney. Normal left kidney. There is a small hiatal hernia. Normal small intestine. There is diverticulosis, with thickening of the colon wall, and pericolonic inflammation changes consistent with acute diverticulitis. Fluid is seen in the right hemicolon. There is scattered atherosclerotic calcification of the abdominal aorta, without a demonstrated aneurysm. Normal inferior vena cava. Normal retroperitoneum. Normal urinary bladder. There is absence of the uterus consistent with a prior hysterectomy. There is a small umbilical hernia containing fat. There are diffuse degenerative changes of the visualized lumbar spine. Status post right total hip replacement causing beam hardening artifact in the pelvis. CT/Abdomen/Pelvis W IV Cont ONLY IMPRESSION: Findings interpreted for acute sigmoid diverticulitis. Status post cholecystectomy. Status post hysterectomy. Electronically Signed: Giorgi Iraheta MD at 9:28 EST ,
[2024-03-03 08:26] LABS: Red Blood Cells-Urine 0 SEEN /hpf (0-5)
[2024-03-03 08:27] LABS: Absolute Lymphocyte Count 2.28 X10^3/uL (0.83-4.51); Absolute Neutrophil Count 13.7 X10^3/uL (2.0-7.7); Basophil# 0.15 X10^3/uL; Basophil% 0.9 % (0-1); Eosinophil# 0.22 X10^3/uL; Eosinophils% 1.3 % (0-5); Hematocrit 40.6 % (37-47); Hemoglobin 13.9 g/dL (12.0-15.0); Lymphocyte # 2.28 X10^3/ul (0.83-4.51); Lymphocyte % 13.3 % (19-41); Mean Corp Hgb Conc 34.2 g/dL (32-36); Mean Corpuscular Hgb 29.9 pg (27.0-32.0); Mean Corpuscular Volume 87.3 fL (81-99); Mean Platelet Vol. 10.1 fl (6.2-12.0); Monocyte% 4.1 % (0-10); NRBC Flagged by Analyzer 0 % (0-5); Neutrophil # 13.67 X10^3/uL (2.7-7.7); Neutrophil % 79.9 % (47-70); Platelet Count 323 K/mm3 (150-450); RBC Distribution Width CV 14.6 % (11.6-14.6); RBC Distribution Width SD 46.7 fl (35.1-43.9); Red Blood Count 4.65 M/mm3 (4.2-5.4); White Blood Count 17.1 K/mm3 (4.4-11.0)
[2024-03-03] MEDS: 0.9% Normal Saline (500mL Bag) 500 ML 999 ML IV (08:37)
[2024-03-03] MEDS: Ketorolac 15 MG/ML Vial IV (08:38)
[2024-03-03 08:43] LABS: ALB/GLOB Ratio 1.2 RATIO (0.9-2.4); AST(SGOT) 62 U/L (15-37); Alanine Aminotransfer ALT/SGPT 61 U/L (13-56); Alkaline Phosphatase 119 U/L (45-117); Anion Gap 6 (5-15); BUN 13 mg/dL (7-18); BUN/Creat Ratio 22.4 RATIO (10-20); Calcium,Total 9.2 mg/dL (8.5-10.1); Chloride 104 mmol/L (98-107); Creatinine, Serum 0.58 mg/dL (0.55-1.02); EST Glomerular Filtration Rate 111 mL/min (>60); Est Glom Filt Rate - Afr Amer 134 mL/min (>60); Estimated Creatinine Clearance 107.08 ml/min; Globulin 3.4 g/dL (2.2-4.2); Glucose 110 mg/dL (74-106); Lipase 20 U/L (13-75); Potassium 3.5 mmol/L (3.5-5.1); Protein, Total 7.4 g/dL (6.4-8.2); Sodium Level 136 mmol/L (136-145)
[2024-03-03 08:44] LABS: Color, Urine Amber (Yellow); Glucose, Dipstick Normal (Normal); Ketone-Dipstick 5 mg/dl (Negative); Leukocyte Esterase-Dipstick 25 /ul (Negative); Nitrite-Dipstick Negative (Negative); Occult Blood-Urine Negative /ul (Negative); Protein-Dipstick 30 mg/dl (Negative); Specific Gravity, Urine 1.025 (1.002-1.030); Urine Bilirubin Dipstick 1 mg/dL (Negative); Urine Clarity Sl. Cloudy (Clear); Urine Urobilinogen 4 mg/dl (Normal)
[2024-03-03 09:10] LABS: Squamous Epithelial Cells - UA 10-25 SEEN /hpf (5-10); White Blood Cells 0-5 SEEN /hpf (0-5)
[2024-03-03 09:11] LABS: Bacteria 3+ /hpf (None Seen); Mucous, Urine 1+ /hpf (<or=2+)
[2024-03-03 09:44] VITALS: BP 124/88; PULSE 76; RESP 18; O2SAT 98
[2024-03-03] MEDS: Amox/Clavulanate 875 MG Tablet PO (09:46)
[2024-03-03 10:03] VITALS: BP 124/88; PULSE 76; RESP 18; TEMP 36.7; O2SAT 98
== END 2024-03-03 10:09 | disposition home or self-care (01) ==
PROVIDERS: Emergency Provider Emergency Medicine; PCP Family Medicine; Visit Provider Emergency Medicine
DX: K57.32 Diverticulitis of large intestine without perforation or abscess without bleeding (principal); F17.210 Nicotine dependence, cigarettes, uncomplicated
CPT/HCPCS: 74177; 80053; 81001; 83690; 85025; 87506; 96361; 96374; 99283; Q9967; A4216

== ENCOUNTER 2024-12-25 08:09 | Emergency (ER) | payer MEDICARE, SELFPAY ==
[2024-12-25 08:10] VITALS: BP 150/96; PULSE 76; RESP 14; TEMP 36.5; O2SAT 100; BMI 28.8
--- NOTE | 2024-12-25 08:21 | ED.VIS.LOWEX ---
HPI History of Present Illness Chief Complaint: Lower Extremity Injury Narrative Narrative: Patient is a 64-year-old female presenting to the emergency department for a left foot wound that occurred at 5 PM last night. Patient has a past medical history as below. Nothing significant to today's visit. Patient states that she stepped on a garden tool last night in her garage around 5 PM. She was barefoot, not wearing shoes. States the garden tool did have dirt on it. She is unsure when her last tetanus vaccine was. States that she cleaned it out well and put Neosporin on it but then today noticed that the wound was worse than she thought. Decided to be evaluated. Denies any other injuries. [facility] Medical History Wears contact lenses Cancer Wears partial dentures Anxiety Depression Alcohol use Arthritis High cholesterol Migraine headache Heartburn Smoker Hx of colonic polyps Contact with and (suspected) exposure to other viral communicable diseases URI (upper respiratory infection) Thyroid disease Home Medications ?Medication ?Instructions ?Recorded ?Last Taken ?Type acyclovir 400 mg tablet 400 mg PO DAILY COLD SORES 07/10/16 08/25/23 History levothyroxine 50 mcg tablet 50 mcg PO DAILY THYROID 07/10/16 08/25/23 History rosuvastatin 5 mg tablet 5 mg PO DAILY CHOLESTEROL 10/19/18 08/25/23 History trazodone 50 mg tablet 50 mg PO QHS SLEEP 10/19/18 08/24/23 History sertraline 100 mg tablet 100 mg PO DAILY 08/19/23 08/25/23 History cephalexin 500 mg capsule 500 mg PO Q6 7 days #28 CAPSULES 11/13/23 Unknown Rx amoxicillin 875 mg-potassium 1 tab PO BID #14 tabs 03/03/24 Unknown Rx clavulanate 125 mg tablet Allergy/AdvReac Type Severity Reaction Status Date / Time insect venom Allergy Swelling Verified 12/25/24 08:10 morphine AdvReac Other Verified 12/25/24 08:10 Surgical History Hx of total hip arthroplasty S/P colonoscopy (~08/24/18) Hx of rotator cuff surgery Social History current occupational status: employed current occupation: [employer] Smoking Status: Current every day smoker tobacco type: cigarettes substance use type: does not use ROS ROS ED ROS Narrative see HPI EXAM Physical Exam Narrative Exam Narrative: Vital signs: Reviewed General: Alert and oriented x 3. No acute distress HEENT: Head is normocephalic and atraumatic, sinuses nontender, pupils equal round and reactive. Nares are patent. Oropharynx and throat exams normal. Neck: Supple without lymphadenopathy nontender Cardiovascular: Regular rate and rhythm, no murmurs. No rubs or gallops. Normal S1 and S2 Respiratory: Clear to auscultation bilaterally. No wheezes, rales, rhonchi Abdominal: Soft and nontender. Normal bowel sounds. No guarding or rebound. Nonsurgical abdomen Extremities: 3 cm superficial laceration to the plantar lateral portion of the foot. Wound edges approximate well together. No gaping wound. Wound does not appear contaminated. No active bleeding. There is no obvious foreign body noted on wound exploration. DP and PT pulses are intact. Motor and sensation intact. The rest of the physical exam is unremarkable Const Vital Signs: 12/25/24 08:10 Temperature 97.7 F L Temperature Source Temporal Pulse Rate 76 Respiratory Rate 14 Blood Pressure 150/96 H Blood Pressure Mean 114 Pulse Ox 100 Oxygen Delivery Method Room Air MDM MDM MDM Narrative Medical decision making narrative: Patient is a 64-year-old female presenting to the emergency department for a foot injury. Patient was seen and examined. Vitals are stable. Patient resting bed comfortably no acute distress. Injury occurred at 5 PM last night which is 15 hours prior to arrival. The wound approximates well together. There is no gaping wound. At this time I think the risks of suturing the wound outweighs the benefits. Patient's tetanus vaccine was updated here. Wound was copiously irrigated. Dressed by nursing staff. Very superficial wound, no indication for x-ray imaging. No foreign body seen on wound exploration. Given the patient reports a garden tool that was covered in dirt was what cut her foot, will place on abx. She was barefoot, not wearing shoes. Less concern for pseudomonas. Patient discharged from the Emergency Department. I do not feel that the patient's evaluation reveals any acute reason for admission at this time. I instructed them to either follow-up with their primary care physician or promptly return to the Emergency Department for reevaluation should symptoms worsen or new symptoms develop. I explained what symptoms would indicate the need to return to the emergency department. Shared decision making was used. The patient voiced understanding of the treatment plan and is agreeable with it. Clinical impression: Foot laceration History & Record Review Discussion w/independent historian: Patient Discharge Plan Triage Chief Complaint: Lower Extremity Injury ED Provider: Rhonda Lucia Dx/Rx/DC Orders Prescriptions: No Action sertraline 100 mg tablet 100 mg PO DAILY acyclovir 400 MG tablet 400 mg PO DAILY Patient Comments: cold sores levothyroxine 50 MCG tablet 50 mcg PO DAILY Patient Comments: thyroid trazodone 50 MG tablet 50 mg PO QHS rosuvastatin 5 MG tablet 5 mg PO DAILY cephalexin 500 mg capsule 500 mg PO Q6 7 Days Qty: 28 0RF amoxicillin-pot clavulanate 875-125 mg tablet 1 tab PO BID Qty: 14 0RF Primary Care Provider: Joao Herron Referrals: Joao Herron MD [Primary Care Provider, Family Practice] Print Language: Cape Verdean
[2024-12-25 08:55] VITALS: BP 145/78; PULSE 74; RESP 16; TEMP 36.6; O2SAT 100
== END 2024-12-25 08:56 | disposition home or self-care (01) ==
PROVIDERS: Emergency Provider Student in an Organized Health Care Education/Training Program; PCP Family Medicine; Visit Provider Student in an Organized Health Care Education/Training Program
DX: S91.312A Laceration without foreign body, left foot, initial encounter (principal); F17.210 Nicotine dependence, cigarettes, uncomplicated; Z23 Encounter for immunization; X58.XXXA Exposure to other specified factors, initial encounter
CPT/HCPCS: 90471; 99282